=== PATIENT | female | born 1945 | race Caucasian/White ===

== ENCOUNTER → 2016-06-20 | Outpatient (CLI) | payer OTHER ==
[~2016-06-20] MED LIST: CHOL100010 PO; CLR10 PO; INDA1TAB3 PO; LISI-729 PO; MULT-506 PO; SIMV20TA2 PO
[2016-06-20 10:20] LABS: BASO % 0.5 %; BASO ABS # 0.02 K/uL (0-0.2); COMPLETE YES; EOS % 3.9 %; IG% 0.2 %; LYMPH % 28.4 %; LYMPH ABS # 1.16 K/uL (1.2-3.4); MEAN CELL VOLUME 90.1 fL (80-100); MEAN CORPUSCULAR HEMOGLOBIN 31.3 pg (25-34); MEAN CORPUSCULAR HGB CONC 34.8 g/dl (32-36); MEAN PLATELET VOLUME 12.1 fL (7.4-10.4); MONO % 9.5 %; NEUT % 57.5 %; PLATELET COUNT 194 K/uL (130-400); RED BLOOD COUNT 4.66 M/uL (4.2-5.4); WHITE BLOOD COUNT 4.09 K/uL (4.8-10.8)
[2016-06-20 10:36] LABS: ESTIMATED AVERAGE GLUCOSE 103 mg/dl; HA1C FLAG Normal (Normal)
[2016-06-20 10:44] LABS: ALT/SGPT 34 U/L (12-78); AST/SGOT 20 U/L (15-37); BLOOD UREA NITROGEN 20 mg/dl (7-18); BUN/CREATININE RATIO 21.2 (10-20); CALCIUM 9.6 mg/dl (8.5-10.1); CARBON DIOXIDE 26 mmol/L (21-32); CHLORIDE 103 mmol/L (98-107); CHOLESTEROL 127 mg/dl (0-200); CREATININE 0.94 mg/dl (0.60-1.20); GLUCOSE 90 mg/dl (70-99); POTASSIUM 3.6 mmol/L (3.5-5.1); SODIUM 138 mmol/L (136-145)
[2016-06-20 10:54] LABS: CHOLESTEROL/HDL RATIO 2.6; HDL CHOLESTEROL 49 mg/dl; LDL CHOLESTEROL CALCULATED 52 mg/dl; TRIGLYCERIDES 130 mg/dl (0-150); VERY LOW DENSITY LIPOPROT CALC 26 mg/dl
--- NOTE | 2016-06-26 10:52 | CODING QUERY MEDICAL NECESSITY ---
SUPPORTING DIAGNOSIS NEEDED A supporting diagnosis is required for the test/procedure performed on this patient in order for us to be reimbursed by the patient's insurance. Please provide a supporting diagnosis for the following test/procedure listed below next to the test name along with your signature. *If there is no additional diagnosis for this patient that would support the following test/procedure please document that below next to the test/procedure. Test(s)/Procedure(s) that require a supporting diagnosis: * GLYCATED HEMOGLOBIN DIAGNOSIS: * DOS: 06/20/16 Provider Signature: Date: Thank you Mary Ortiz Health Information Management Once completed, please kindly fax back to [phone] For questions please call [phone]
== END | disposition home or self-care (01) ==
LOC: C.LAB1850 09:17
PROVIDERS: ATTEND Internal Medicine
DX: E78.00 Pure hypercholesterolemia, unspecified (principal); E74.39 Other disorders of intestinal carbohydrate absorption

== ENCOUNTER → 2016-12-28 | Outpatient (CLI) | payer OTHER ==
--- NOTE | 2016-12-29 14:30 | MAMMOGRAPHY REPORT ---
BILATERAL DIGITAL SCREENING MAMMOGRAM TOMOSYNTHESIS WITH CAD: 12/28/2016 CLINICAL HISTORY: Asymptomatic. Personal history of breast cancer. TECHNIQUE: Breast tomosynthesis in addition to standard 2D mammography was performed. Current study was also evaluated with a Computer Aided Detection (CAD) system. COMPARISON: Comparison is made to exams dated: 12/28/2015 mammogram, 12/23/2014 mammogram, 12/19/2013 ma mmogram, 12/18/2012 mammogram, 12/18/2011 mammogram, and 12/12/2010 mammogram - [facility] BREAST COMPOSITION: There are scattered areas of fibroglandular density in both breasts. FINDINGS: There is a round circumscribed 6 mm mass seen within the right lateral posterior breast on the cc view, thought to project superiorly on the MLO view. While this could represent an intramamm candido lymph node, it was not clearly evident on prior exams, therefore, recommend additional imaging ev aluation with spot compression tomosynthesis views and possible breast ultrasound for further evaluat ion. The remainder of both breasts are stable compared to prior exams, without suspicious masses, calcific ations, or areas of architectural distortion noted. Again noted are postsurgical changes in the right upper outer quadrant from prior lumpectomy. A biopsy marker clip is again noted in the right breast . Bilateral benign-appearing calcifications are not significantly changed. Benign-appearing left br east masses/asymmetries are stable. IMPRESSION: ACR BI-RADS CATEGORY 0: INCOMPLETE EVALUATION: NEED ADDITIONAL IMAGING EVALUATION Right breast mass, for which additional imaging evaluation is recommended. The patient will be cavanaugh d to schedule an appointment. Approximately 10% of breast cancers are not detected with mammography. A negative mammographic report should not delay biopsy if a clinically suggestive mass is present. Maria G Orantes M.D. /:12/28/2016 16:53:54 Tank Charger: Cipriano RODRIGUEZ(Patti)(M), [facility] letter sent: Addl Imaging 0 BI-RADS Code: ACR BI-RADS Category 0: Incomplete Evaluation: Need Additional Imaging Evaluation
== END | disposition home or self-care (01) ==
LOC: C.MAMM 07:47
PROVIDERS: ATTEND Internal Medicine
DX: Z12.31 Encounter for screening mammogram for malignant neoplasm of breast (principal); N63 Unspecified lump in breast; Z85.3 Personal history of malignant neoplasm of breast; E78.00 Pure hypercholesterolemia, unspecified

== ENCOUNTER → 2016-12-28 | Outpatient (CLI) | payer OTHER ==
[2016-12-28 09:39] LABS: HEMATOCRIT 45.1 % (37-47); MEAN CELL VOLUME 91.5 fL (80-100); MEAN CORPUSCULAR HEMOGLOBIN 30.4 pg (25-34); MEAN CORPUSCULAR HGB CONC 33.3 g/dl (32-36); MEAN PLATELET VOLUME 11.3 fL (7.4-10.4); PLATELET COUNT 198 K/uL (130-400); RED BLOOD COUNT 4.93 M/uL (4.2-5.4); WHITE BLOOD COUNT 3.85 K/uL (4.8-10.8)
[2016-12-28 09:59] LABS: ALT/SGPT 39 U/L (12-78); BLOOD UREA NITROGEN 15 mg/dl (7-18); CALCIUM 9.9 mg/dl (8.5-10.1); CARBON DIOXIDE 26 mmol/L (21-32); CHLORIDE 107 mmol/L (98-107); CREATININE 0.84 mg/dl (0.60-1.20); GLUCOSE 101 mg/dl (70-99); POTASSIUM 3.7 mmol/L (3.5-5.1); SODIUM 140 mmol/L (136-145)
[2016-12-28 10:02] LABS: ALB/GLOB RATIO 0.9 (0.9-2); ALKALINE PHOSPHATASE 83 U/L (45-117); AST/SGOT 26 U/L (15-37)
[2016-12-28 10:12] LABS: BASO ABS # 0.03 K/uL (0-0.2); BASOPHIL % 0.9 %; COMPLETE YES; EOSINOPHIL % 4.5 %; LYMPH ABS # 0.79 K/uL (1.2-3.4); LYMPHOCYTE % 20.5 %; NEUTROPHILS % 66.1 %; VACUOLIZATION 1+
[2016-12-28 10:20] LABS: CHOLESTEROL/HDL RATIO 3.6
== END | disposition home or self-care (01) ==
LOC: C.LAB1850 08:18
PROVIDERS: ATTEND Internal Medicine
DX: Z85.3 Personal history of malignant neoplasm of breast (principal); E78.00 Pure hypercholesterolemia, unspecified

== ENCOUNTER → 2017-01-05 | Outpatient (CLI) | payer OTHER ==
[2017-01-05 15:10] LABS: URINE APPEARANCE CLEAR (CLEAR); URINE BILIRUBIN NEG (NEG); URINE COLOR YELLOW; URINE NITRITE NEG (NEG); URINE PH 6.5 (4.5-7.5); URINE SPECIFIC GRAVITY 1.011 (1.000-1.030); UROBILINOGEN NEG (NEG); ZZUR CULT IF INDIC CLEAN CATCH NO
[2017-01-05 15:13] LABS: MANUAL MICROSCOPIC REQUIRED? NO; REVIEW REQ? NO
== END | disposition home or self-care (01) ==
LOC: C.LAB1850 13:40
PROVIDERS: ATTEND Internal Medicine
DX: R10.9 Unspecified abdominal pain (principal)

== ENCOUNTER → 2017-01-10 | Outpatient (CLI) | payer OTHER ==
--- NOTE | 2017-01-10 14:15 | MAMMOGRAPHY REPORT ---
UNILATERAL RIGHT DIGITAL DIAGNOSTIC MAMMOGRAM TOMOSYNTHESIS AND TARGETED RIGHT ULTRASOUND: 01/10/2017 CLINICAL HISTORY: Callback from screening mammogram for right breast mass. TECHNIQUE: Breast tomosynthesis in addition to standard 2D mammography was performed. Spot compress ion right CC and MLO 2-D and tomosynthesis images and right CC and MLO tomosynthesis images including C views were obtained. COMPARISON: Comparison is made to exams dated: 12/28/2016 mammogram, 12/28/2015 mammogram, 12/23/2014 m ammogram, 12/19/2013 mammogram, 12/18/2012 mammogram, and 12/18/2011 mammogram - [facility]. BREAST COMPOSITION: There are scattered areas of fibroglandular density in the right breast. FINDINGS: spot compression views of the right breast demonstrate a persistent oval mass with partia lly circumscribed and partially obscured margins measuring approximately 5 mm in the right upper oute r quadrant far posteriorly. Targeted ultrasound was performed of the area of the mammographic mass. In the right breast at 8:30, 9 cm from the nipple, there is an oval circumscribed hypoechoic 5 x 5 x 2 mm mass. No clear fatty h ilum or central internal vascularity is seen to confirm a lymph node. A BB was placed on the skin at the site of the sonographic mass and repeat right CC and MLO views were obtained. The BB is located near the mammographic mass on both views, indicating probable correlation between the sonographic ma ss and the mammographic mass. Although the mass could represent an intramammary lymph node, it does not meet all of the criteria for a lymph node. Therefore, the mass is indeterminate and ultrasound g uided core needle biopsy is recommended for further evaluation. IMPRESSION: ACR BI-RADS CATEGORY 4: SUSPICIOUS, TARGETED ULTRASOUND ACR BI-RADS CATEGORY 4: SUSPICIO US Hypoechoic 5 mm mass in the right breast at 8:30, which is felt to correspond with the mammographic m ass. While this could represent an intramammary lymph node, it does not meet all of the imaging crit eria. Therefore, the mass is indeterminate and ultrasound guided core needle biopsy is recommended f or further evaluation. A phone call was made to the physician's office to confirm faxed results were received. The patient has been verbally notified of the results. She tentatively scheduled the biopsy before leaving the [facility]. Approximately 10% of breast cancers are not detected with mammography. A negative mammographic report should not delay biopsy if a clinically suggestive mass is present. Maria G Orantes M.D. ah/:01/10/2017 09:50:07 Health Communications Specialist: Sita ANTHONY)(Sasha), [facility] letter sent: Abnormal 4/5 BI-RADS Code: ACR BI-RADS Category 4: Suspicious Ultrasound BI-RADS: ACR BI-RADS Category 4: Suspici ous
== END | disposition home or self-care (01) ==
LOC: C.MAMM 08:50
PROVIDERS: ATTEND Internal Medicine
DX: N63 Unspecified lump in breast (principal)

== ENCOUNTER → 2017-01-17 | Outpatient (CLI) | payer OTHER ==
--- NOTE | 2017-01-17 09:23 | Discharge Instructions ---
Discharge Instructions Procedure Procedure Date: Jan 17, 2017. Reason for visit: Right Mass. Discharge Discharge Date: Jan 17, 2017. Discharge Diagnosis: status post breast biopsy Instructions Activity Recommendations: Additional Limitations (see below) Return to School/Work: no limitations Recommended Home Diet: No Limitations Provider Instructions: ACTIVITY RECOMMENDATIONS: * No lifting, pushing, pulling or exercising the affected side for three days. RETURN TO SCHOOL/WORK: * You may return to work/school after the procedure, but do not perform any strenuous activities for 24 to 48 hours. MEDICATIONS: * Tylenol (two 325 mg) every four to six hours if needed for mild pain (if not allergic to Tylenol). DIET: * Resume previous diet. SPECIAL CARE INSTRUCTIONS: * Keep biopsy site dry for 24 hours. May shower after 24 hours, but do not soak (bathe) incision. * May remove Tegaderm (plastic patch) tomorrow AFTER showering. * Leave the steri-strips on for one week. Allow the steri-strips to fall off by themselves. If not off after one week, you may remove them. You may place a Bandaid crosswise over the strips, if desired. * Apply ice 10 minutes on and 10 minutes off as needed. * Wear a bra at bedtime to sleep more comfortably for 2-3 days. * Your referring physician should have the results after approximately 5 to 7 business days. * Call for unusual bleeding, fever, drainage, etc or if you have any questions call during normal business hours or after hours call Dr Orantes, [phone]. FOLLOW UP VISIT: Follow-up with Referring Physician as scheduled. Allergies Coded Allergies: No Known Allergies (Unverified , 11/01/12) Michael Clark Recommendations: Call your doctor if: * Temperature above 101 degrees * Pain not relieved by pain medicine ordered * There is increased drainage or redness from any incision * You have any unanswered questions or concerns. Your Doctors Instructions noted above were prepared by provider Maria G Orantes. Patient Signature Section: Patient Instructions Signature Page Gabriela Wallace Patient (or Guardian) Signature/Date: I have read and understand the instructions given to me by my caregivers. Caregiver/RN/Doctor Signature/Date: The above-named patient and/or guardian has received patient instructions on this date. + Original Patient Signature Page (only) stays with chart. Please make copy for patient.
--- NOTE | 2017-01-17 13:48 | MAMMOGRAPHY REPORT ---
ULTRASOUND GUIDED BIOPSY RIGHT BREAST: 01/17/2017 CLINICAL HISTORY: Right 8:30 breast mass. PATIENT CONSENT: The procedure, risks and benefits were discussed with the patient and informed writt en consent was obtained. A timeout was performed immediately prior to the procedure. PROCEDURE DESCRIPTION: With ultrasound guidance, aseptic technique, and lidocaine as the local anesth etic (1% lidocaine to anesthetize the skin and 1% lidocaine with epinephrine to anesthetize the deepe r tissues), the mass of concern in the right 8:30 breast was sampled 3 times with a 14-gauge Achieve biopsy needle. Immediately thereafter, with ultrasound guidance, aseptic technique, and lidocaine a s the local anesthetic, a metallic localizer clip was placed centrally in the mass. Direct pressure was applied to the site immediately post procedure and hemostasis was achieved. Postprocedure unilat eral mammograms were performed to confirm placement of the clip in the expected location of the breas t mass; see separate dictation for details. The patient tolerated the procedure without complication . She was given wound care instructions. The specimens were sent to pathology for analysis. COMPARISON: Comparison is made to exams dated: 01/10/2017 ultrasound, 01/10/2017 mammogram, 12/28/2016 mammogram, 12/28/2015 mammogram, 12/23/2014 mammogram, and 12/19/2013 mammogram - [facility]. IMPRESSION: ULTRASOUND GUIDED BIOPSY Ultrasound guided core needle biopsy of the right 8:30 breast mass, with clip placement. The patient will receive pathology results from her referring provider. Maria G Orantes M.D. /:01/17/2017 09:25:26 Outboard Motorboat Rigger: Antionette Goodman, [facility]
--- NOTE | 2017-01-17 13:50 | MAMMOGRAPHY REPORT ---
UNILATERAL RIGHT DIGITAL DIAGNOSTIC MAMMOGRAM TOMOSYNTHESIS: 01/17/2017 CLINICAL HISTORY: Status post right breast biopsy. TECHNIQUE: Breast tomosynthesis in addition to standard 2D mammography was performed. Postprocedura l right CC and MLO views were obtained. COMPARISON: Comparison is made to exams dated: 01/10/2017 ultrasound, 01/10/2017 mammogram, 12/28/2016 mammogram, 12/28/2015 mammogram, 12/23/2014 mammogram, and 12/19/2013 mammogram - [facility]. BREAST COMPOSITION: There are scattered areas of fibroglandular density in the right breast. FINDINGS: A new biopsy marker clip is seen at the site of the biopsied mass in the right 8:30 breast posteriorly. The biopsy marker clip aligns with the previously seen mammographic mass, indicating g ood correlation between the biopsied sonographic mass and the mammographic masses. No significant po stbiopsy hematoma is seen. IMPRESSION: POST PROCEDURE IMAGING FOR MARKER PLACEMENT New biopsy marker clip status post ultrasound-guided biopsy of the right 8:30 breast mass. Pathology results are pending. Approximately 10% of breast cancers are not detected with mammography. A negative mammographic report should not delay biopsy if a clinically suggestive mass is present. Maria G Orantes M.D. /:01/17/2017 09:31:33 Docent Coordinator: Antionette Goodman [facility] BI-RADS Code: Post Procedure Imaging For Marker Placement
== END | disposition home or self-care (01) ==
LOC: C.MAMM 08:55
PROVIDERS: ATTEND Internal Medicine
DX: N63 Unspecified lump in breast (principal)

== ENCOUNTER → 2017-01-29 | Outpatient (CLI) | payer OTHER | END | disposition home or self-care (01) | LOC: C.MAMM 15:29 | PROVIDERS: ATTEND Internal Medicine Hematology & Oncology | DX: M85.89 Other specified disorders of bone density and structure, multiple sites (principal) ==

== ENCOUNTER → 2017-06-20 | Day surgery (SDC) | payer OTHER ==
[2017-06-14 10:05] VITALS: Ht 162.6 cm; Wt 78.2 kg
[~2017-06-20] VITALS: Ht 162.6 cm; Wt 78.2 kg
[~2017-06-20] MED LIST changes: -CHOL100010 PO; +EpHEDrine SULFATE 50MG/5ML SYR ONE; +LIDOCAINE HCL 2% 2 ML VIAL (20MG/ML) ONE; +MULT1LOZ PO; +PROPOFOL IV EMULSION 10 MG/ML 20 ML VIAL IV ONE; +SODIUM CHLORIDE 0.9% 500ML 500 ML IV ONE
--- NOTE | 2017-06-20 12:54 | Endo History and Physical ---
History & Physical Date of Service: Jun 20, 2017. Chief Complaint: Hx of colon CA Referring Physician: Dr Hunter History of Present Illness 72 yo CF who presents for colonoscopy secondary to history of colon cancer. Past Surgical History Hx Cardiac Surgery: No Hx Internal Defibrillator: No Hx Pacemaker: No Hx Abdominal Surgery: No Hx of Implantable Prosthesis: No Hx Post-Op Nausea and Vomiting: No Hx Cancer Surgery: Yes (RT BREAST LUMPECTOMY) Hx Thoracic Surgery: No Hx Orthopedic: No Hx Urinary Tract Surgery: No Family History None Social History Smoking Status: Never Smoker Hx Substance Use: No Hx Alcohol Use: No Allergies Coded Allergies: No Known Allergies (Verified , 06/20/17) Current Medications Reported Home Medications Medications Dose Route/Sig Max Daily Dose Days Date Category Airborne (Multiple Vitamins W/ Minerals) 1 Gracie Gracie 1 Tab PO DAILY 06/14/17 Reported Claritin (Loratadine) 10 Mg Tab 10 Mg PO DAILY 09/29/13 Reported Multivitamin (Multivitamins) Tab 1 Tab PO DAILY 09/29/13 Reported Lozol (Indapamide) 1.25 Mg Tab 1.25 Mg PO QAM 09/09/12 Reported Zocor (Simvastatin) 20 Mg Tab 20 Mg PO QPM 09/09/12 Reported Prinivil (Lisinopril) 5 Mg Tab 5 Mg PO QAM 09/09/12 Reported Vital Signs Weight (Kilograms): 78.18 Height (Feet): 5 Height (Inches): 4 Date Time Temp Pulse Resp B/P (MAP) Pulse Ox O2 Delivery O2 Flow Rate FiO2 06/20/17 12:29 36.5 80 20 115/93 (100) 95 Room Air Physical Exam General Appearance: WD/WN, no apparent distress Respiratory/Chest: Auscultation: breath sounds normal Cardiovascular: Heart Auscultation: RRR Abdomen: Bowel Sounds: normal Inspection & Palpation: soft, non-distended, no tenderness, guarding & rebound Assessment and Plan Assessment: 72 yo CF who presents for colonoscopy secondary to history of colon cancer. Plan: Proceed with colonoscopy.
--- NOTE | 2017-06-20 13:19 | Discharge Instructions ---
Endoscopy Patient Instructions Date / Procedure(s) Performed Jun 20, 2017. Colonoscopy Allergy Information Coded Allergies: No Known Allergies (Verified , 06/20/17) Discharge Date / Findings Jun 20, 2017. Diverticulosis Internal hemorrhoids Medication Instructions OK to resume all medications today as prescribed Reported Home Medications Medications Dose Route/Sig Max Daily Dose Days Date Category Airborne (Multiple Vitamins W/ Minerals) 1 Gracie Gracie 1 Tab PO DAILY 06/14/17 Reported Claritin (Loratadine) 10 Mg Tab 10 Mg PO DAILY 09/29/13 Reported Multivitamin (Multivitamins) Tab 1 Tab PO DAILY 09/29/13 Reported Lozol (Indapamide) 1.25 Mg Tab 1.25 Mg PO QAM 09/09/12 Reported Zocor (Simvastatin) 20 Mg Tab 20 Mg PO QPM 09/09/12 Reported Prinivil (Lisinopril) 5 Mg Tab 5 Mg PO QAM 09/09/12 Reported Provider Instructions Activity Restrictions - No exercising or heavy lifting for 24 hours. - Do not drink alcohol the day of the procedure. - Do not drive a car or operate machinery until the day after the procedure. - Do not make any important decisions or sign important papers in 24 hours after the procedure. Following Day: - Return to full activity which may include returning to work/school. Diet Start your diet with liquids and light foods (jello, soup, juice, toast). Then eat your usual diet if not nauseated. Treatment For Common After Affects For mild abdominal pain, bloating, or excessive gas: - Rest - Eat lightly - Lie on right side Follow-Up Information Follow-up with Dr Hunter as scheduled Anesthesia Information What You Should Know You have had a procedure that required some medicine to reduce anxiety and discomfort. This treatment is called moderate sedation. After receiving the treatment, you may be sleepy, but you will be able to breathe on your own. The effects of the treatment may last for several hours. Follow these instructions along with Activity/Diet recommendations noted above: * Do NOT do anything where dizziness or clumsiness would be dangerous. * Rest quietly at home today, then you can be up and about tomorrow. * Have a responsible person stay with you the rest of today. * You may have had an I.V. today. If so, you may take the dressing off later today. Recommendations Call your doctor if: * Trouble breathing * Continuous vomiting for more than 24 hours * Temperature above 101 degrees * Severe abdominal pain or bloating * Pain not relieved by pain medicine ordered * There is increased drainage or redness from any incision * A large amount of rectal bleeding greater than 2-3 tablespoons. (If you had a polyp/s removed or have hemorrhoids, a small amount of blood - from the rectum is to be expected.) * You have any unanswered questions or concerns. IN THE EVENT OF A SERIOUS EMERGENCY, GO TO THE NEAREST EMERGENCY ROOM Your discharge instructions were prepared by provider Yandel Loja. Patient Instructions Signature Page Gabriela Walalce Patient (or Guardian) Signature/Date: I have read and understand the instructions given to me by my caregivers. Caregiver/RN/Doctor Signature/Date: The above-named patient and/or guardian has received patient instructions on this date. + Original Patient Signature Page (only) stays with chart. Please make copy for patient.
--- NOTE | 2017-06-20 13:22 | GI REPORT ---
Procedure Date: 06/20/2017 12:26 PM Procedure: Colonoscopy Indications: High risk colon cancer surveillance: Personal history of colonic polyps Medicines: Monitored Anesthesia Care Complications: No immediate complications. Estimated Blood Loss: Estimated blood loss: none. Procedure: Pre-Anesthesia Assessment: - Prior to the procedure, a History and Physical was performed, and patient medications and allergies were reviewed. The patient's tolerance of previous anesthesia was also reviewed. The risks and benefits of the procedure and the sedation options and risks were discussed with the patient. All questions were answered, and informed consent was obtained. Prior Anticoagulants: The patient has taken no previous anticoagulant or antiplatelet agents. ASA Grade Assessment: II - A patient with mild systemic disease. After reviewing the risks and benefits, the patient was deemed in satisfactory condition to undergo the procedure. After I obtained informed consent, the scope was passed under direct vision. Throughout the procedure, the patient's blood pressure, pulse, and oxygen saturations were monitored continuously. The Scope was introduced through the anus and advanced to the terminal ileum. The colonoscopy was performed without difficulty. The patient tolerated the procedure well. The quality of the bowel preparation was good. The terminal ileum, ileocecal valve, appendiceal orifice, and rectum were photographed. Findings: The perianal and digital rectal examinations were normal. Multiple small-mouthed diverticula were found in the sigmoid colon. Non-bleeding internal hemorrhoids were found during retroflexion. The hemorrhoids were small. Impression: - Diverticulosis in the sigmoid colon. - Non-bleeding internal hemorrhoids. - No specimens collected. Recommendation: - Resume previous diet. - Continue present medications. - No repeat colonoscopy due to age and the absence of advanced adenomas. - Return to primary care physician as previously scheduled. Yandel Loja, DO 06/20/2017 1:21:58 PM This report has been signed electronically. Note Initiated On: 06/20/2017 12:26 PM I attest to the content of the Intraoperative Record and orders documented therein, exceptions below
--- NOTE | 2017-06-20 13:41 | Anesthesiology Progress Note ---
Anesthesia Post Op Note Date & Time Jun 20, 2017 at 13:41 Vital Signs Pain Intensity: 0 Vital Signs Past 12 Hours Date Time Temp Pulse Resp B/P (MAP) Pulse Ox O2 Delivery O2 Flow Rate FiO2 06/20/17 13:23 80 16 109/72 (84) 95 Room Air 06/20/17 12:29 36.5 80 20 115/93 (100) 95 Room Air Notes Mental Status: alert / awake / arousable, participated in evaluation Pt Amnestic to Procedure: Yes Nausea / Vomiting: adequately controlled Pain: adequately controlled Airway Patency, RR, SpO2: stable & adequate BP & HR: stable & adequate Hydration State: stable & adequate Anesthetic Complications: no major complications apparent
[2017-06-20 13:53] VITALS: BP 96/67; PULSE 80; O2SAT 98
== END | disposition home or self-care (01) ==
LOC: C.GI 11:51
PROVIDERS: ATTEND Internal Medicine
DX: Z12.11 Encounter for screening for malignant neoplasm of colon (principal); K57.30 Diverticulosis of large intestine without perforation or abscess without bleeding; K64.8 Other hemorrhoids; Z86.010 Personal history of colon polyps; I10 Essential (primary) hypertension; E78.5 Hyperlipidemia, unspecified; M19.90 Unspecified osteoarthritis, unspecified site; Z85.3 Personal history of malignant neoplasm of breast

== ENCOUNTER → 2017-07-06 | Outpatient (CLI) | payer OTHER ==
[~2017-07-06] MED LIST changes: -EpHEDrine SULFATE 50MG/5ML SYR ONE; -LIDOCAINE HCL 2% 2 ML VIAL (20MG/ML) ONE; -PROPOFOL IV EMULSION 10 MG/ML 20 ML VIAL IV ONE; -SODIUM CHLORIDE 0.9% 500ML 500 ML IV ONE
[2017-07-06 10:05] LABS: BASO % 0.3 %; BASO ABS # 0.01 K/uL (0-0.2); EOS % 3.6 %; EOS ABS # 0.14 K/uL (0-0.5); HEMATOCRIT 40.9 % (37-47); HEMOGLOBIN 14.4 g/dL (12.0-16.0); LYMPH % 25.5 %; LYMPH ABS # 0.99 K/uL (1.2-3.4); MEAN CELL VOLUME 89.5 fL (80-100); MEAN CORPUSCULAR HEMOGLOBIN 31.5 pg (25-34); MEAN CORPUSCULAR HGB CONC 35.2 g/dl (32-36); MONO % 9.3 %; MONO ABS # 0.36 K/uL (0.11-0.59); NEUT % 61.3 %; NEUT ABS # 2.38 K/uL (1.4-6.5); PLATELET COUNT 206 K/uL (130-400); RED CELL DISTRIBUTION WIDTH CV 12.8 % (11.5-14.5); RED CELL DISTRIBUTION WIDTH SD 41.4 fL (36.4-46.3); WHITE BLOOD COUNT 3.88 K/uL (4.8-10.8)
[2017-07-06 10:28] LABS: HEMOGLOBIN A1C 5.3 % (4.5-5.6)
[2017-07-06 10:34] LABS: ALT/SGPT 37 U/L (12-78); AST/SGOT 25 U/L (15-37); BLOOD UREA NITROGEN 19 mg/dl (7-18); CALCIUM 9.7 mg/dl (8.5-10.1); CARBON DIOXIDE 27 mmol/L (21-32); CREATININE 0.89 mg/dl (0.60-1.20); GLUCOSE 91 mg/dl (70-99); POTASSIUM 4.2 mmol/L (3.5-5.1); SODIUM 135 mmol/L (136-145)
[2017-07-06 10:45] LABS: CHOLESTEROL 168 mg/dl (0-200); LDL CHOLESTEROL CALCULATED 98 mg/dl
== END | disposition home or self-care (01) ==
LOC: C.LAB1850 08:57
PROVIDERS: ATTEND Internal Medicine
DX: Z00.00 Encounter for general adult medical examination without abnormal findings (principal); E78.00 Pure hypercholesterolemia, unspecified; I10 Essential (primary) hypertension

== ENCOUNTER → 2018-01-01 | Outpatient (CLI) | payer OTHER ==
--- NOTE | 2018-01-02 13:38 | MAMMOGRAPHY REPORT ---
BILATERAL DIGITAL SCREENING MAMMOGRAM TOMOSYNTHESIS WITH CAD: 01/01/2018 CLINICAL HISTORY: Asymptomatic. Personal history of breast cancer. TECHNIQUE: The study was acquired using full field digital technology and interpreted from soft copy. Breast tomosynthesis in addition to standard 2D mammography was performed. Current study was also ev aluated with a Computer Aided Detection (CAD) system. COMPARISON: Comparison is made to exams dated: 01/17/2017 mammogram, 01/10/2017 mammogram, 12/28/2016 ma mmogram, 12/28/2015 mammogram, 12/23/2014 mammogram, and 12/19/2013 mammogram - [facility] ter. BREAST COMPOSITION: There are scattered areas of fibroglandular density in both breasts. FINDINGS: There is skin irregularity and expected architectural distortion in the upper outer right b reast, at the site of prior lumpectomy. There is a stable lobulated mass in the slightly medial post erior left breast. Scattered benign coarse calcifications. Mild vascular calcification in the breas ts. There are 2 stable metallic biopsy marker clips in the right breast. No new suspicious mass, arc hitectural distortion or cluster of microcalcifications is seen. IMPRESSION: ACR BI-RADS CATEGORY 1: NEGATIVE There is no mammographic evidence of malignancy. A 1 year screening mammogram is recommended.( [id number]) The patient will receive written notification of the results. Some breast cancers are not detected with mammography. A negative mammographic report should not joe y biopsy if a clinically suggestive mass is present. Loretta Kruger M.D. ay/:01/01/2018 19:43:34 Bow Repairer Custom: RT So(Patti)(M)(BD), [facility] letter sent: Normal 1/2 BI-RADS Code: ACR BI-RADS Category 1: Negative
== END | disposition home or self-care (01) ==
LOC: C.MAMM 08:13
PROVIDERS: ATTEND Internal Medicine
DX: Z12.31 Encounter for screening mammogram for malignant neoplasm of breast (principal)

== ENCOUNTER 2020-03-15 14:58 | Observation (INO) ==
--- NOTE | 2020-03-11 09:57 | Anesthesiology Consultation ---
Date of Service March 11, 2020 Assessment & Plan (1) Encounter for pre-operative examination: COVID Status: As of 02/24 nurse assessment, patient denies travel to endemic area, known exposure/sick contacts, or symptoms of COVID19. Preoperative COVID19 testing completed on 03/10, results pending. Chart Review Chart Review: Acceptable Risk for Surgery and Patient NOT seen in Pre Admission Testing History Surgery Operation Date: 03/15/20 07:00 Proposed Procedures p Right Breast Mastectomy with Right [place] Lymph Node Biopsy, Kenisha Hospice Educator Right Lymph Node Placement - Jesus William MD, FACS Height/Weight Height: 5 ft 5 in Weight: 79.379 kg Allergies Allergy/AdvReac Type Severity Reaction Status Date / Time No Known Allergies Allergy Verified 02/25/20 11:17 Medications Home Medications Medication Instructions Recorded Confirmed Last Taken vitamins A,C,K-twzf-igkhoa 7,160 2 tab PO BID #120 tab 01/21/19 02/25/20 Unknown unit-113 mg-100 unit tablet fluocinonide 0.05 % topical 1 appln TOP DAILY PRN gm 03/27/19 02/25/20 Unknown ointment fluocinonide 0.05 % topical 1 appln TOP BID PRN ml 03/27/19 02/25/20 Unknown solution indapamide 1.25 mg tablet 1.25 mg PO QAM #90 tab 09/08/19 02/25/20 Unknown simvastatin 20 mg tablet 20 mg PO QPM #90 tab 09/08/19 02/25/20 Unknown cholecalciferol (vitamin D3) 1,000 units PO QAM 02/25/20 02/25/20 Unknown lisinopril 5 mg PO QAM 02/25/20 02/25/20 Unknown loratadine 10 mg PO QAM 02/25/20 02/25/20 Unknown multivitamin [Multiple Vitamins] 1 tab PO QAM 02/25/20 02/25/20 Unknown Past Medical History Medical History (Updated 03/11/20 @ 09:54 by Miky Griffith) Benign colonic polyp Breast cancer HX RADIATION 20 YRS AGO Diverticulosis GERD (gastroesophageal reflux disease) Glaucoma Hypercholesterolemia Hypertension Incomplete uterovaginal prolapse Internal hemorrhoids Osteopenia Past Family History Family History Mother Cancer Father Hypertension Past Surgical History Surgical History (Updated 02/25/20 @ 11:25 by Rosalba Huizar RN) H/O colonoscopy (2019) History of cataract surgery BILAT S/P lumpectomy, right breast (06/19/03) Rt Breast Lumpectomy W-Needle Loc,[place] 06/19/03 Dr. Baptiste Social History Smoking Status: Former smoker Do You Dip or Chew Tobacco: No Smoking End Date: 50 YRS AGO Hx Alcohol Use: No Hx Substance Use: No substance use type: does not use Testing Laboratory Results 03/10/20 WBC: 6.70 H/H: 15.4/44 PLATELETS: 230 SODIUM: 136 POTASSIUM: 3.5 CHLORIDE: 102 CO2: 27 BUN: 15 CREATININE: 1.02 GLUCOSE: 99 Electrocardiogram Date: 03/10/20 Findings: + NSR @ (74bpm) Nonspecific ST abnormality. No significant change from 2012 EKG.
--- NOTE | 2020-03-15 13:28 | Post Operative Brief Note ---
PG Immediate Post Op with CF Date of Surgery March 15, 2020 Pre & Post Diagnosis Operation Date: 03/15/20 11:55 Pre-Op Diagnosis: Breast Cancer Post-Op Diagnosis: Breast Cancer I identified the patient and participated in the time-out.: Yes Procedure Operation Date: 03/15/20 11:55 Actual Procedures p Right Breast Mastectomy with Right [place] Lymph Node Biopsy, Kenisha Risk Management Analyst Right Lymph Node Placement(Right) - Jesus William MD, FACS Surgeon Jesus William MD, FACS Medical Sales Consultant Silvestre Brock Estimated Blood Loss 20 Findings Consistent with Post-Op Diagnosis Specimens Specimen Description: A. Right [place] Lymph Nodes B. Right Breast; Long Silk Lateral C. Right Lateral Lymph Node with Marker; Methlyene Blue Deep Margin, Silk Kumar Lymph Node Drains Delta-Jc Drain
--- NOTE | 2020-03-15 13:44 | Operative Report (OR) ---
DATE OF OPERATION: 03/15/2020 NAME OF OPERATION: Right mastectomy with sentinel lymph node biopsy and additional lymph node excision. STAFF SURGEON: Jesus William MD. HHAS: Telma Brock PA-C. ANESTHESIA: General. DESCRIPTION OF PROCEDURE: The patient was brought in the operating room and placed on the operating table in supine position. Her right arm was extended on an arm board. Her right axilla and chest were prepped and draped in usual fashion. My diagnostic assistant helped with prepping, draping, excision of the lymph nodes, excision of the breast tissue and closure of the wounds. Initially, an incision was made in the right axilla using the Neoprobe to identify the sentinel lymph nodes, which were sent for permanent section. The site was closed using 2-0 plain for the deep tissue and 4-0 nylon for the skin. An elliptical incision was made around the nipple-areolar complex from medial to lateral, being careful to excise the prior scar and also noting a lateral lymph node using the [employer] Maintenance Mechanic probe. The breast tissue was dissected away from the subcutaneous tissue superiorly and inferiorly down to the pectoralis major muscle and then excising the breast tissue off the pectoralis major muscle. The left breast tissue was then marked with a long silk lateral. I was then able to use the [employer] Maintenance Mechanic probe to excise the suspicious lymph node, which had been biopsied preop, but was benign. This was sent with a silk suture marking the lymph node and methylene blue marking the deep/muscle margin. It was deep and lateral on the breast. At this point, the chest wall wound was closed after placing a 15 round Delta-Jc drain, securing it to the skin using 3-0 nylon suture. Subcutaneous tissue was reapproximated using 3-0 Vicryl suture, then the skin reapproximated using subcuticular 4-0 Monocryl with Steri-Strips. Dressing applied and the patient was transferred to recovery room in stable condition. I attest to the content of the Intraoperative Record and any orders documented therein. Any exception s are noted below.
--- NOTE | 2020-03-15 14:10 | Anesthesiology Progress Note ---
Date of Service March 15, 2020 Anesthesia Post Procedure Vital Signs Vital Signs: Temp Pulse Pulse Resp BP Pulse Ox 03/15/20 14:00 73 15 130/66 99 03/15/20 13:50 80 16 131/72 98 03/15/20 13:41 36.1 C L 87 13 135/85 98 03/15/20 09:17 36.6 C 79 18 145/83 H 98 Pain Intensity Right Breast: Pain Intensity: 2 Transfer of Care Handoff Completed per policy Notes Mental Status: alert / awake / arousable and participated in evaluation Patient Amnestic to Procedure: Yes Nausea / Vomiting: adequately controlled Pain: adequately controlled Airway Patency, RR, SpO2: stable & adequate BP & HR: stable & adequate Hydration State: stable & adequate Anesthetic Complications: no major complications apparent and Pt Satisfied with anesthetic care
--- NOTE | 2020-03-15 14:50 | Mammography Report ---
SPECIMEN: 03/15/2020 CLINICAL HISTORY: 75-year-old woman with recurrent right breast carcinoma presents at time of mastect katya. A previously biopsied lymph node in the far lateral posterior aspect of the right breast was pre operatively localized with Kenisha Application Support to ensure inclusion in the tissue specimen. COMPARISON: Comparison is made to exams dated: 03/01/2020 localization, 03/01/2020 mammogram, 020 ultrasound biopsy, 01/28/2020 ultrasound biopsy, 01/27/2020 mammogram, and 01/13/2020 mammogram - [facility]. FINDINGS: A specimen radiograph was obtained in the area of previously biopsied benign lymph node in the far lateral aspect of the right breast. The imaged specimen includes the wing-shaped biopsy flori er and Kenisha Application Support reflector, compatible with successful preoperative wireless localization and subseq uent surgical excision. Final surgical pathology is pending. IMPRESSION: SPECIMEN Right lateral breast biopsy specimen, as above. Loretta Krguer M.D. ay/:03/15/2020 13:22:47 Towel Cabinet Repairer: OR Technologist, [facility]
[~2020-03-15 14:58] MED LIST changes: +ACETAMINOPHEN 1,000 MG/100 ML VIAL IV ONE; +ATROPINE SULFATE 0.1 MG/ML 10ML SYR IV PRN; +BUPIVACAINE 0.5 % 5 MG/1 ML MPF 30ML VIAL ONE; -CLR10 PO; -INDA1TAB3 PO; +ISOSULFAN BLUE 10 MG/ML VIAL 5 ML ONE; -LISI-729 PO; +LR 15ML/HR IV SCH; -MULT-506 PO; -MULT1LOZ PO; +ONDANSETRON INJ 2 MG/ML 2 ML VIAL IV PRN; -SIMV20TA2 PO; +ceFAZolin 2000MG 2,000 MG/15 ML SYR IV SCH; +ePHEDrine sulfate 50 MG/ML AMP IV PRN; +fentaNYL citrate 100 MCG/2 ML VIAL IV PRN
[2020-03-15] MEDS ORDERED: HYDROCODONE/ACETAMOPHEN 5/325MG TAB PO PRN ×2 (15:01)
[2020-03-15] MEDS ORDERED: ACETAMINOPHEN 325 MG TAB PO PRN (15:01)
[2020-03-15] MEDS ORDERED: PROMETHAZINE HCL 12.5 MG in SODIUM CHLORIDE 0.9% 50 ML IV PRN (15:01)
[2020-03-15] MEDS ORDERED: SODIUM CHLORIDE 0.9% 1000ML 1,000 ML IV SCH (15:01)
[2020-03-15] MEDS ORDERED: ONDANSETRON INJ 2 MG/ML 2 ML VIAL IV PRN (15:01)
[2020-03-15] MEDS ORDERED: MoRPHine SULFATE 2 MG/ML CARP IV PRN ×2 (15:01)
[2020-03-15] MEDS ORDERED: hydrALAZINE HCL 20 MG/ML VIAL IV PRN (18:28)
--- NOTE | 2020-03-15 18:28 | Hospitalist Consultation ---
Date of Consultation March 15, 2020 Assessment & Plan (1) Breast cancer: Patient with recurrence of her breast cancer status post right mastectomy and sentinel node biopsy. She was initially treated for demonstrating ductal carcinoma T1c. N0 M0 ER positive H ER2/MARLI negative breast cancer with radiation therapy and 5 years of Femara. She had interval abnormal mammogram biopsied in 2017 which was negative (2) Hypertension: We continue the indapamide and lisinopril as needed hydralazine for backup blood pressure control History of Present Illness Attending Physician: Jesus William MD, FACS History of Present Illness Patient is status post right breast mastectomy with right sentinel lymph node biopsy by Dr. William 03/15/2020. This is a revision of her previous breast cancer surgery from Dr. Pereira Patient postoperatively seen with her she has no complaints or problems she did not take any of her antihypertensive medications this morning. She does have a drain in place which is a FELICIA with some sanguinous drainage Allergies Allergy/AdvReac Type Severity Reaction Status Date / Time No Known Allergies Allergy Verified 02/25/20 11:17 Home Medications Home Medications Medication Instructions Recorded Confirmed Type vitamins A,C,V-mhma-ivktuz 7,160 2 tab PO BID #120 tab 01/21/19 03/15/20 Rx unit-113 mg-100 unit tablet fluocinonide 0.05 % topical 1 appln TOP DAILY PRN gm 03/27/19 03/15/20 History ointment fluocinonide 0.05 % topical 1 appln TOP BID PRN ml 03/27/19 03/15/20 History solution indapamide 1.25 mg tablet 1.25 mg PO QAM #90 tab 09/08/19 03/15/20 Rx simvastatin 20 mg tablet 20 mg PO QPM #90 tab 09/08/19 03/15/20 Rx cholecalciferol (vitamin D3) 1,000 units PO QAM 02/25/20 03/15/20 History lisinopril 5 mg PO QAM 02/25/20 03/15/20 History loratadine 10 mg PO QAM 02/25/20 03/15/20 History multivitamin [Multiple Vitamins] 1 tab PO QAM 02/25/20 03/15/20 History Patient History Medical History (Updated 03/11/20 @ 09:54 by Miky Griffith) Benign colonic polyp Breast cancer HX RADIATION 20 YRS AGO Diverticulosis GERD (gastroesophageal reflux disease) Glaucoma Hypercholesterolemia Hypertension Incomplete uterovaginal prolapse Internal hemorrhoids Osteopenia Surgical History (Updated 03/15/20 @ 13:46 by Geetha Bello RN) H/O colonoscopy (2019) H/O right mastectomy (03/15/20) Right mastectomy with sentinel lymph node biopsy and additional lymph node excision. Dr. William 03/15/2020 History of cataract surgery BILAT S/P lumpectomy, right breast (06/19/03) Rt Breast Lumpectomy W-Needle Loc,[place] 06/19/03 Dr. Baptiste Family History Mother Cancer Father Hypertension Social History (Updated 02/11/20 @ 09:54 by Claritza Gomez RN) Smoking Status: Former smoker Smoking End Date: 50 YRS AGO; Second Hand Exposure: Yes ( KID); Do You Dip or Chew Tobacco: No; Tobacco Cessation Education Requested by Patient: No Hx Alcohol Use: No Hx Substance Use: No Preferred Language: Kyrgyz Communication Ability: Effective Admissions Officer Required: No Beliefs That Will Affect Care: None marital status: Current Living Situation: Spouse current occupational status: retired How many Children do You have: 3 Other Information That Helps Us Care for You: No Feels Safe at Home: Yes Safety Concerns: Feels Safe At This Time Assistive Devices: Glasses Review of Systems Review of Systems: Mild distress and fatigue no headache, blurry or double vision no speech or swallowing issues Some right chest postsurgical pain no shortness of breath, cough or wheezes no abdominal pain, nausea or vomiting, diarrhea or constipation no dysuria, hematuria or frequency no focal joint pain or swelling no back pain, CVA tenderness or radicular pain wound dressing is in place on her right chest no focal signs of weakness or numbness or altered sensation no complaints of anxiety or depression. Physical Exam Physical Exam: The patient appeared well nourished and normally developed. Vital signs as documented. Head exam is normocephalic atraumatic no scleral icterus Neck is without JVD, thyromegaly, or carotid bruits. Lungs are clear to auscultation, no focal loss of breath sounds Cardiac exam, Rhythm is regular.. No murmurs, rubs or gallops. Right chest is slightly uncomfortable to examination there is a FELICIA drain coming out of her right axilla Abdominal exam reveals normal bowel sounds, soft non tender, no masses Extremities are nonedematous and both pedal pulses are present Neurologic exam is alert and oriented, no focal loss of strength or sensation Psychologically is without concerns for anxiety or depression. Results & Data Results & Data ([facility]) Vital Signs (Past 12 Hours) Vital Signs Temp Pulse Pulse Resp BP Pulse Ox 03/15/20 17:54 98.1 F 78 16 118/74 96 03/15/20 16:56 97.7 F 75 16 130/78 97 03/15/20 15:50 97.3 F L 76 16 129/80 96 03/15/20 15:23 97.7 F 71 16 120/70 100 03/15/20 15:20 98.1 F 76 16 129/62 95 03/15/20 14:40 69 14 125/61 97 03/15/20 14:30 97.5 F L 70 14 129/79 96 03/15/20 14:20 68 19 126/68 98 03/15/20 14:10 77 17 124/79 97 03/15/20 14:00 73 15 130/66 99 03/15/20 13:50 80 16 131/72 98 03/15/20 13:41 97.0 F L 87 13 135/85 98 03/15/20 09:17 97.9 F 79 18 145/83 H 98 PG Care Time/CCT Total # of Minutes Spent Total Time Spent with Patient: Total time spent is greater than 50% in coordination of care (as documented) at patient's floor/unit and/or counseling patient: Coding Level of Care Code 73649 Inpt Consult Level 2 Diagnoses Breast cancer C50.919 Hypertension I10
[2020-03-15] MEDS: ceFAZolin 1000MG 1,000 MG/7.5 ML SYR IV SCH (19:34)
[2020-03-15] MEDS ORDERED: SIMVASTATIN 20 MG TAB PO SCH (21:00)
[2020-03-16] MEDS: ceFAZolin 1000MG 1,000 MG/7.5 ML SYR IV SCH (04:42)
[2020-03-16] MEDS ORDERED: HEPARIN SOD 5,000 UNIT/0.5 ML VIAL SQ SCH (09:00)
[2020-03-16] MEDS ORDERED: LORATADINE 10 MG TAB PO SCH (09:00)
[2020-03-16] MEDS ORDERED: INDAPAMIDE 1.25 MG TAB PO SCH (09:00)
[2020-03-16] MEDS ORDERED: lisinopril 5 MG TAB PO SCH (09:00)
--- NOTE | 2020-03-16 10:32 | Anesthesiology Progress Note ---
Date of Service March 16, 2020 Anesthesia Post Procedure Vital Signs Vital Signs: Temp Pulse Pulse Resp BP BP Pulse Ox 03/16/20 08:42 36.7 C 66 18 137/80 95 03/16/20 03:59 36.6 C 75 18 131/80 95 03/15/20 23:06 37.0 C 74 14 124/66 95 03/15/20 19:43 36.6 C 80 17 131/85 95 03/15/20 17:54 36.7 C 78 16 118/74 96 03/15/20 16:56 36.5 C 75 16 130/78 97 03/15/20 15:50 36.3 C L 76 16 129/80 96 03/15/20 15:23 36.5 C 71 16 120/70 100 03/15/20 15:20 36.7 C 76 16 129/62 95 03/15/20 14:40 69 14 125/61 97 03/15/20 14:30 36.4 C L 70 14 129/79 96 03/15/20 14:20 68 19 126/68 98 03/15/20 14:10 77 17 124/79 97 03/15/20 14:00 73 15 130/66 99 03/15/20 13:50 80 16 131/72 98 03/15/20 13:41 36.1 C L 87 13 135/85 98 Pain Intensity Right Breast: Pain Intensity: 0 Notes Mental Status: alert / awake / arousable and participated in evaluation Patient Amnestic to Procedure: Yes Nausea / Vomiting: adequately controlled Pain: adequately controlled Airway Patency, RR, SpO2: stable & adequate BP & HR: stable & adequate Hydration State: stable & adequate Anesthetic Complications: no major complications apparent and Pt Satisfied with anesthetic care
--- NOTE | 2020-03-17 04:08 | Discharge Summary (DS) ---
PRINCIPAL DIAGNOSIS: Right breast cancer. PROCEDURES: The patient underwent right mastectomy with sentinel lymph node biopsy and lymph node excision. HOSPITAL COURSE: The patient was brought into the hospital on 03/15/2020 where she underwent right mastectomy with sentinel lymph node biopsy and also excision of a prior biopsied lymph node. She has done very well overnight and is felt stable for discharge home today to be followed in the surgical clinic within 1 week.
== END 2020-03-16 12:12 | disposition home health service (06) ==
LOC: ASU 14:58 → 3N 14:58

== ENCOUNTER 2024-03-18 10:59 | Observation (INO) ==
--- NOTE | 2024-03-18 11:23 | Emergency Department Note ---
Impression & Plan Non-ST elevation NE (NSTEMI), Heart palpitations, LBBB (left bundle branch block) ED Provider Note HISTORY OF PRESENT ILLNESS: Patient is an 79-year-old female presenting with palpitations. Patient reports that last night around 2300, she was trying to go to bed and felt like her heart was pounding and racing. She reports that she took her blood pressure and it was elevated and her heart rate was in the 150s. Reports that she could not get her heart rate to slow down for a number of hours and had to sleep sitting up. She denies any recent use. Denies any recent medication changes. Denies any chest pain, shortness of breath or lightheadedness with the palpitations. She states that she has had this happen before, but it only lasts anywhere from 10- 30 minutes and she is normally able to get her heart rate back down. Denies any recent cough or fevers. States that the episode ended at around 2 AM and she has not had another episode this morning. However, she went to [facility] to get evaluated and an EKG was performed and appeared abnormal as compared to an EKG from 2019, and she was referred to the ER. Denies any DVT or PE history. Denies any complaints at this time. ROS: as above PHYSICAL EXAM: Constitutional: Patient appears in no acute distress. HENT: Head: Normocephalic and atraumatic. Eyes: EOMI, PERRL Mouth/Throat: Mucous membranes moist. Neck: Trachea midline. Neck supple. Cardiovascular: RRR, No murmurs, rubs or gallops. Intact distal pulses. Pulmonary/Chest: No respiratory distress. Breath sounds clear and equal bilaterally. No wheezes or rales. Abdominal: Abdomen soft, no tenderness, rebound or guarding. Musculoskeletal: No edema, tenderness or deformity noted. Skin: Warm and dry. No rash, erythema, pallor or cyanosis Psychiatric: Appropriate mood and affect for situation. Neurological: Alert and keenly responsive. CN II-XII grossly intact, moving all extremities equally and fully. MDM: - Vitals signs showed hypertension and tachycardia. - History obtained via patient. History as above. - Chronic conditions affecting care: breast cancer (s/p right mastectomy with sentinel lymph node biopsy); GERD; HLD - Differential diagnoses include, but are not limited to: hyperthyroidism; electrolyte abnormality; ACS; pneumonia; dysrhythmia - Order placed for continuous cardiac monitoring. At this time, monitor showed rate of 77 bpm with normal sinus rhythm, per my interpretation. - External medical records reviewed. EKG obtained at [facility] at 10:16 was interpreted by myself. Showed normal sinus rhythm with a left bundle branch block. Rate 77 bpm. QT 416. - EKG interpreted by myself showed normal sinus rhythm. Rate 76 bpm. QT 412. No acute ischemic changes. Noted to have left bundle branch block. This left bundle branch block does appear new as compared to the last EKG obtained on 03/10/2020. - Laboratory workup interpreted by myself showed normal WBC; normal PT/INR; stable electrolytes; elevated total bilirubin (1.5); normal lipase; elevated troponin (109); normal TSH - CXR negative for pneumonia, per my interpretation - Patient is chest pain free in ER. NSTEMI may be secondary to her reported hours of tachycardia. However, given the new EKG changes (which again may be old, as we only have an EKG from 2019 to compare to), discussed case with media reconciliation specialist, Dr. Celeste, at 12:41. He reports no urgent need for labor relations worker, but recommends admission, trending troponins and obtaining an echocardiogram. Reports if patient does develop chest pain, he may consider taking her for a catheterization. - Discussion was had with case assistant about patient's case and need for admission - Hospitalist, Dr. Babb, consulted for admission - [facility] ASSESSMENT AND PLAN: Diagnosis: palpitations; NSTEMI; LBBB Plan: admit Past Med/Surg History Problem List (Updated 03/18/24 @ 12:56 by Chana Benton MD) LBBB (left bundle branch block) (Acute) Heart palpitations (Acute) Non-ST elevation NE (NSTEMI) (Acute) Osteoporosis Allergy OA (osteoarthritis) GERD (gastroesophageal reflux disease) Health care maintenance H/O right mastectomy (03/15/20) Right mastectomy with sentinel lymph node biopsy and additional lymph node excision. Dr. William 03/15/2020 Benign colonic polyp (Chronic) Diverticulosis (Chronic) Glaucoma (Chronic) Hypercholesterolemia (Chronic) Incomplete uterovaginal prolapse (Chronic) Internal hemorrhoids (Chronic) Osteopenia (Chronic) Medical History Recurrent cancer of right breast Superficial thrombophlebitis of arm Tachycardia Encounter for pre-operative examination GERD (gastroesophageal reflux disease) Pre-op testing Encounter for screening for other viral diseases Breast cancer Surgical History History of cataract surgery H/O colonoscopy (2018) S/P lumpectomy, right breast (06/19/03) Family History Mother Cancer Ovarian cancer Father Hypertension Myocardial infarction Denies family history of Prostate cancer Breast cancer Colorectal cancer Social History Smoking Status: Never smoker Age Started Using Tobacco: 19; Age Quit Using Tobacco: 23; Second Hand Exposure: No; Do You Dip or Chew Tobacco: No; Hx Alcohol Use: No Hx Substance Use: No Preferred Language: Togolese Communication Ability: Effective Visual Impairment: No Limitations Hearing Ability: Normal Stab Setter And Driller Required: No Beliefs That Will Affect Care: None marital status: Current Living Situation: Spouse current occupational status: retired How many Children do You have: 3 Feels Safe at Home: Yes Childhood Exposure to Second-Hand Smoke: Yes Dental Care, Regularly: Yes Physical Activity Frequency: 3-4 Times per Week Seatbelt Use: always Sunscreen Use: Yes Assistive Devices: Glasses Allergies Allergies Allergy/AdvReac Type Severity Reaction Status Date / Time No Known Allergies Allergy Verified 03/18/24 10:01 Home Meds Home Medications Medication Instructions Recorded Confirmed loratadine 10 mg tablet 10 mg PO QAM 02/25/20 03/18/24 multivitamin (Multiple Vitamins 1 tab PO QAM 02/25/20 03/18/24 tablet) anastrozole 1 mg tablet 1 mg PO DAILY 11/11/20 03/18/24 [id number] 5 mg-zeaxanth 4 cap PO DAILY 03/10/22 03/18/24 1 mg-bilberry 7.5 mg-herbal capsule (Macular Health Formula) omeprazole 20 mg tablet,delayed 20 mg PO DAILY 09/12/22 03/18/24 release Probiotic (Unknown Strength) 1 cap PO DAILY 03/18/24 03/18/24 Tums 1,000 Mg 1 ea PO DAILY 03/18/24 03/18/24 dorzolamide 22.3 mg-timolol 6.8 1 drp OPB BID 03/18/24 03/18/24 mg/mL eye drops mometasone 0.1 % topical cream See Rx Instructions .Route .COMPLEX 03/18/24 03/18/24 Previous Rx's Medication Instructions Recorded albuterol sulfate 90 mcg/actuation 1 inh inhalation QID PRN shortness 03/10/22 aerosol inhaler of breath or wheezing #8.5 grams simvastatin 20 mg tablet 20 mg PO QPM #90 tabs 10/05/23 Results & Data (ED) Vital Signs Vital Signs - 24 hr 03/18/24 11:03 03/18/24 11:26 03/18/24 11:26 Temperature 36.3 C L Temperature Source Temporal Artery Scan Pulse Rate 93 H 84 Pulse Rate [Apical] Pulse Rhythm Regular Pulse Strength Normal Respiratory Rate 20 18 Respiratory Effort / Characteristics Non-Labored Spontaneous Respiratory Depth Normal Blood Pressure 165/98 H Blood Pressure [Left Arm] Blood Pressure Mean 120 Blood Pressure Mean [Left Arm] Blood Pressure Position Sitting Blood Pressure Position [Left Arm] Pulse Oximetry 96 97 97 Oxygen Delivery Method Room Air Room Air Room Air Oxygen Flow Rate 0 Sepsis Recent Fever Within 48 Hours No Sepsis New/Unexplained Change in Mental Status N/A Sepsis Action Taken by Nursing No Action Required 03/18/24 11:35 03/18/24 12:22 Temperature Temperature Source Pulse Rate 77 Pulse Rate [Apical] 72 Pulse Rhythm Pulse Strength Respiratory Rate 18 Respiratory Effort / Characteristics Non-Labored Spontaneous Respiratory Depth Normal Blood Pressure Blood Pressure [Left Arm] 147/79 H Blood Pressure Mean Blood Pressure Mean [Left Arm] 101 Blood Pressure Position Blood Pressure Position [Left Arm] Semi-fowlers Pulse Oximetry 97 Oxygen Delivery Method Room Air Oxygen Flow Rate Sepsis Recent Fever Within 48 Hours Sepsis New/Unexplained Change in Mental Status Sepsis Action Taken by Nursing Laboratory Data 03/18/24 11:37 03/18/24 11:37 Lab Results 03/18/24 Range/Units 11:37 WBC 6.76 (4.8-10.8) K/ul RBC 5.01 (4.20-5.40) M/uL Hgb 15.4 (12.0-16.0) g/dl Hct 44.8 (37.0-47.0) % MCV 89.4 (80.0-100.0) fL MCH 30.7 (25.0-34.0) pg MCHC 34.4 (32.0-36.0) g/dL RDW Std Deviation 41.6 (36.4-46.3) fL RDW Coeff of Lucien 12.8 (11.5-14.5) % Plt Count 225 (130-400) K/uL MPV 11.7 (9.4-12.4) fL Immature Gran % (Auto) 0.1 % Neut % (Auto) 61.1 % Lymph % (Auto) 24.0 % [place] % (Auto) 9.5 % Eos % (Auto) 4.7 % Baso % (Auto) 0.6 % Neut # (Auto) 4.13 (1.40-6.50) K/uL Lymph # (Auto) 1.62 (1.20-3.40) K/uL [place] # (Auto) 0.64 H (0.11-0.59) K/uL Eos # (Auto) 0.32 (0.00-0.50) K/uL Baso # (Auto) 0.04 (0.00-0.20) K/uL Immature Gran # (Auto) 0.01 (0.01-0.20) K/uL PT 11.3 (9.0-12.0) Seconds INR 1.0 (0.9-1.1) Sodium 141 (136-145) mmol/L Potassium 4.1 (3.5-5.1) mmol/L Chloride 109 H (98-107) mmol/L Carbon Dioxide 23 (21-32) mmol/L Anion Gap 9 (3-11) BUN 24 H (6-23) mg/dl Creatinine 0.78 (0.6-1.2) mg/dl Est Cr Clr Drug Dosing 59.7 ml/min eGFR 76.26 BUN/Creatinine Ratio 30.8 H (10-20) Glucose 105 H (70-99(Fasting)) mg/dl Calcium 9.8 (8.6-10.3) mg/dl Magnesium 1.8 (1.7-2.4) mg/dl Total Bilirubin 1.5 H (0.2-1.0) mg/dl AST 31 (13-39) U/L ALT 28 (7-52) U/L Alkaline Phosphatase 66 (34-104) U/L Troponin I High Sens 109.0 H* (0-14) pg/ml Total Protein 8.1 (6.0-8.3) gm/dl Albumin 4.4 (3.4-5.0) gm/dl Globulin 3.7 (2.5-4.0) gm/dl Albumin/Globulin Ratio 1.2 (0.9-2) Lipase 12 (11-82) U/L TSH 2.939 (0.300-4.500) uIu/ml Discharge Plan Visit Data Chief Complaint: Tachycardia Stated Complaint: ABN EKG, TACHYCARDIA/POUNDING ED Provider: Chana Benton Discharge Problem: Non-ST elevation NE (NSTEMI), Heart palpitations, LBBB (left bundle branch block) Forms Stand Alone Forms: [facility] Prescriptions Prescriptions: No Action simvastatin 20 mg tablet 20 mg PO QPM Qty: 90 3RF anastrozole 1 mg tablet 1 mg PO DAILY omeprazole 20 mg tablet,delayed release (DR/EC) 20 mg PO DAILY Macular Health Formula 5-1-7.5 mg capsule 4 cap PO DAILY albuterol sulfate 90 mcg/actuation HFA aerosol inhaler 1 inh inhalation QID PRN (Reason: shortness of breath or wheezing) Qty: 8.5 4RF loratadine 10 mg Tablet 10 mg PO QAM multivitamin [Multiple Vitamins] tablet 1 tab PO QAM dorzolamide-timolol 22.3-6.8 mg/mL drops 1 drp OPB BID Tums 1,000 Mg 1 ea PO DAILY mometasone 0.1 % cream See Rx Instructions .ROUTE .COMPLEX Rx Instructions: Apply to affected areas on trunk and extremities twice daily x 2 weeks as needed for flaring. Probiotic (Unknown Strength) 1 cap PO DAILY Referrals Referrals: Rebecca Cunha MD [Primary Care Provider] -
[2024-03-18 11:57] LABS: Basophils # (auto) 0.04 K/uL (0.00-0.20); Basophils % (auto) 0.6 %; Eosinophils # (auto) 0.32 K/uL (0.00-0.50); Eosinophils % (auto) 4.7 %; Hematocrit (blood only) 44.8 % (37.0-47.0); Hemoglobin 15.4 g/dl (12.0-16.0); Immature Granulocytes # (auto) 0.01 K/uL (0.01-0.20); Immature Granulocytes % (auto) 0.1 %; Lymphocytes # (auto) 1.62 K/uL (1.20-3.40); Mean Corpuscular Hemoglobin 30.7 pg (25.0-34.0); Mean Corpuscular Hgb Conc 34.4 g/dL (32.0-36.0); Mean Corpuscular Volume 89.4 fL (80.0-100.0); Mean Platelet Volume 11.7 fL (9.4-12.4); Monocytes # (auto) 0.64 K/uL (0.11-0.59); Monocytes % (auto) 9.5 %; Neutrophils # (auto) 4.13 K/uL (1.40-6.50); Neutrophils % (auto) 61.1 %; Platelet Count 225 K/uL (130-400); RDW Coefficient of Variation 12.8 % (11.5-14.5); RDW Standard Deviation 41.6 fL (36.4-46.3); Red Blood Count 5.01 M/uL (4.20-5.40); White Blood Count 6.76 K/ul (4.8-10.8)
[2024-03-18 12:07] LABS: Albumin Globulin Ratio 1.2 (0.9-2); Albumin Level 4.4 gm/dl (3.4-5.0); BUN Creatinine Ratio 30.8 (10-20); Bilirubin,Total 1.5 mg/dl (0.2-1.0); Calcium 9.8 mg/dl (8.6-10.3); Creatinine Clr Calc Pharmacy 59.7 ml/min; Globulin 3.7 gm/dl (2.5-4.0); Magnesium 1.8 mg/dl (1.7-2.4); Potassium 4.1 mmol/L (3.5-5.1); Total Protein 8.1 gm/dl (6.0-8.3)
[2024-03-18 12:15] LABS: Prothrombin Time 11.3 Seconds (9.0-12.0)
[2024-03-18 12:22] LABS: Thyroid Stimulating Hormone 2.939 uIu/ml (0.300-4.500)
--- NOTE | 2024-03-18 12:51 | XRay Report ---
XR chest 1V portable CLINICAL HISTORY: Tachycardia. COMPARISON STUDY: PET/CT March 24, 2020. FINDINGS: There is no pneumothorax or pleural effusion. There is no consolidation or evidence for pul monary edema. A moderate sized hiatal hernia is noted. There is stable elevation of the right hemidia phragm. IMPRESSION: 1. No acute cardiopulmonary findings. 2. Stable elevation of the right hemidiaphragm. 3. Moderate-sized hiatal hernia. ACT 112: Negative or not required by law. Electronically signed by: Ministerio Briceno M.D. 03/18/2024 12:50 PM
--- NOTE | 2024-03-18 13:39 | History & Physical Report ---
Date of Service March 18, 2024 Assessment & Plan (1) Heart palpitations: (2) LBBB (left bundle branch block): (3) Elevated troponin: (4) GERD (gastroesophageal reflux disease): (5) Osteoporosis: (6) Glaucoma: (7) Hypercholesterolemia: (8) Hypertension: Plan 79 year old female with h/o breast cancer s/p mastectomy, HLD, GERD, osteoporosis, and glaucoma presenting after a prolonged episode of palpitations. #Palpitations: 3 hour episode of palpitations/tachycardia with rates up to 150s at rest - history suspicious for tachyarrhythmia Hgb WNL, TSH WNL, no electrolyte abnormalities noted Monitor for recurrence on telemetry, consider event monitor as outpatient #Elevated Troponin/New LBBB: EKG with new LBBB but without ischemic changes Troponin 109 on admission, repeat 100.6 - low suspicion for ACS, more likely a result of demand ischemia in the setting of sustained tachycardia. TTE obtained to r/o ischemic insult, read pending. Chronic Problems: H/o breast cancer: continue home anastrozole HLD: continue home simvastatin Glaucoma: continue home dorzolamide-timolol GERD: continue home omeprazole Dispo: admit to med-tele FEN/GI: HH diet VTE ppx: Heparin Full Code History of Present Illness Primary Care Provider: Rebecca Cunha MD 79 year old female with h/o breast cancer s/p mastectomy, HLD, GERD, osteoporosis, and glaucoma presenting after a prolonged episode of palpitations. Sx started abruptly around 2300 last night while patient was in bed, felt her heart racing but did not have associated chest pain, SOB, or lightheadedness. Patient monitored her vitals during this episode, HR up to the 150s at rest. Patient was eventually able to fall asleep in her recliner, estimates that sx subsided spontaneously after about 3 hours. Patient has previously experienced similar sx on multiple occasions over the past 4 years, though never for this long, palpitations normally subside within minutes. Denies h/o known ar rhythmias, sx were never worked up. No further sx today. Patient was seen in [facility] care this morning, EKG notable for new LBBB when compared to EKG in 2019. Currently, patient resting comfortably, states that she feels at baseline - denies CP, SOB, lightheadedness/dizziness. ED Course: EKG with NSR, rate 76, intervals WNL, new LBBB, no ischemic changes. Troponin 109->100.6. Allergies Allergy/AdvReac Type Severity Reaction Status Date / Time No Known Allergies Allergy Verified 03/18/24 10:01 Home Medications Medication Instructions Recorded Confirmed Type loratadine 10 mg tablet 10 mg PO QAM 02/25/20 03/18/24 History multivitamin (Multiple Vitamins 1 tab PO QAM 02/25/20 03/18/24 History tablet) anastrozole 1 mg tablet 1 mg PO DAILY 11/11/20 03/18/24 History albuterol sulfate 90 mcg/actuation 1 inh inhalation QID PRN shortness 03/10/22 03/18/24 Rx aerosol inhaler of breath or wheezing #8.5 grams [id number]-vql-[id number] 5 mg-zeaxanth 4 cap PO DAILY 03/10/22 03/18/24 History 1 mg-bilberry 7.5 mg-herbal capsule (Macular Health Formula) omeprazole 20 mg tablet,delayed 20 mg PO DAILY 09/12/22 03/18/24 History release simvastatin 20 mg tablet 20 mg PO QPM #90 tabs 10/05/23 03/18/24 Rx Probiotic (Unknown Strength) 1 cap PO DAILY 03/18/24 03/18/24 History Tums 1,000 Mg 1 ea PO DAILY 03/18/24 03/18/24 History dorzolamide 22.3 mg-timolol 6.8 1 drp OPB BID 03/18/24 03/18/24 History mg/mL eye drops mometasone 0.1 % topical cream See Rx Instructions .Route .COMPLEX 03/18/24 03/18/24 History Past Med/Surg History Problem List (Updated 03/18/24 @ 13:40 by Aakash Gooden DO) Elevated troponin LBBB (left bundle branch block) (Acute) Heart palpitations (Acute) Non-ST elevation [place] (NSTEMI) (Acute) Osteoporosis Allergy OA (osteoarthritis) GERD (gastroesophageal reflux disease) Health care maintenance H/O right mastectomy (03/15/20) Right mastectomy with sentinel lymph node biopsy and additional lymph node excision. Dr. William 03/15/2020 Benign colonic polyp (Chronic) Diverticulosis (Chronic) Glaucoma (Chronic) Hypercholesterolemia (Chronic) Incomplete uterovaginal prolapse (Chronic) Internal hemorrhoids (Chronic) Osteopenia (Chronic) Medical History Recurrent cancer of right breast Superficial thrombophlebitis of arm Tachycardia Encounter for pre-operative examination GERD (gastroesophageal reflux disease) Pre-op testing Encounter for screening for other viral diseases Breast cancer Surgical History History of cataract surgery H/O colonoscopy (2019) S/P lumpectomy, right breast (06/19/03) Family History Mother Cancer Ovarian cancer Father Hypertension Myocardial infarction Denies family history of Prostate cancer Breast cancer Colorectal cancer Social History Smoking Status: Former smoker Age Started Using Tobacco: 19; Age Quit Using Tobacco: 23; Second Hand Exposure: No; Do You Dip or Chew Tobacco: No; Tobacco Cessation Education Requested by Patient: No Hx Alcohol Use: No Hx Substance Use: No Preferred Language: Mohawk Communication Ability: Effective Visual Impairment: No Limitations Hearing Ability: Normal Poultry Veterinarian Required: No Beliefs That Will Affect Care: None marital status: Current Living Situation: Spouse current occupational status: retired How many Children do You have: 3 Other Information That Helps Us Care for You: No Feels Safe at Home: Yes Safety Concerns: Feels Safe At This Time Childhood Exposure to Second-Hand Smoke: Yes Dental Care, Regularly: Yes Physical Activity Frequency: 3-4 Times per Week Seatbelt Use: always Sunscreen Use: Yes Assistive Devices: Glasses Review of Systems Review of Systems: as per HPI Physical Exam Physical Exam: General: Alert and oriented. No acute distress Cardiac: Regular rate and rhythm, no murmurs appreciated Respiratory: Lungs clear to auscultation bilaterally, No increased work of breathing Abdominal: Soft, non-tender, non-distended. Bowel sounds present. Extremities: No lower extremity edema, calves non-tender bilaterally Results & Data Results & Data Vital Signs (Past 12 Hours) Vital Signs Temp Pulse Pulse Resp BP BP Pulse Ox 03/18/24 13:02 73 13 161/91 H 96 03/18/24 12:22 77 03/18/24 11:35 72 18 147/79 H 97 03/18/24 11:26 84 18 97 03/18/24 11:26 97 03/18/24 11:03 36.3 C L 93 H 20 165/98 H 96 O2 Del Method O2 Flow Rate 03/18/24 13:02 Room Air 03/18/24 12:22 03/18/24 11:35 Room Air 03/18/24 11:26 Room Air 03/18/24 11:26 Room Air 0 03/18/24 11:03 Room Air Supervising Physician Co-Signing Physician Notes I personally saw and examined the patient. I independently reviewed the labs, EKG, imaging, problem list, medication list, past medical history and family history. I verified all nino points and agree with resident physician Dr Aakash Gooden DO with the following exceptions and/or additions: 79 year old presents to the ER with episode of palpitations. Elevated troponin and new LBB on EKG. No chest pain or shortness of breath O/E HS RRR, no murmurs, Chest CTAB, Abdo SNT A/P Episode of palpitations - resolved while on monitor in the ER, monitor on telemetry for arrhythmia, consider outpatient classroom monitor LBBB with septal akinesis - septal akinesia/ballooning on POCUS US, TTE, consult cardiology to consider ischemic testing Otherwise as above Resident Activity Tracking Resident Involvement: Resident Care Provided Care Provided: Adult Hospital Medicine
--- NOTE | 2024-03-18 14:25 | Electrocardiogram Report ---
Test Reason : Blood Pressure : */* mmHG Vent. Rate : 76 BPM Atrial Rate : 76 BPM P-R Int : 184 ms QRS Dur : 122 ms QT Int : 412 ms P-R-T Axes : 7 18 56 degrees QTcB Int : 463 ms Normal sinus rhythm Left bundle branch block Abnormal ECG When compared with ECG of 10-Mar-2020 10:36, Left bundle branch block is now Present Confirmed by Ortega Leija ([id number]) on 03/18/2024 2:25:29 PM Referred By: REFERRED SELF Confirmed By: Ortega Leija
[2024-03-18] MEDS ORDERED: ACETAMINOPHEN 325 MG TAB PO PRN (14:47)
[2024-03-18] MEDS ORDERED: MAGNESIUM HYDROXIDE SUSP 30 ML UDC PO PRN (14:47)
[2024-03-18] MEDS ORDERED: ALBUTEROL HFA 8 GM INHALER INH PRN (14:47)
[2024-03-18] MEDS ORDERED: ALUMINUM/MAGNESIUM SUSP 30 ML UDC PO PRN (14:47)
[2024-03-18] MEDS ORDERED: POLYETHYLENE (MIRALAX) 17 GM PACK PO PRN (14:47)
--- NOTE | 2024-03-18 15:32 | XCELERA ---
[id number]
[2024-03-18] MEDS: HEPARIN SOD 5,000 UNIT/0.5 ML VIAL SQ SCH (20:31)
[2024-03-18] MEDS: DORZOLAMIDE/TIMOLOL 22.3/6.8MG/ML 10 ML BTL OPB SCH (20:31)
[2024-03-18] MEDS: SIMVASTATIN 20 MG TAB PO SCH (20:32)
[2024-03-19 06:35] LABS: BUN Creatinine Ratio 23.3 (10-20); Calcium 9.1 mg/dl (8.6-10.3); Creatinine Clr Calc Pharmacy 63.6 ml/min; Potassium 3.3 mmol/L (3.5-5.1)
[2024-03-19 07:48] VITALS: RESP 18; TEMP 97.7
[2024-03-19] MEDS: PANTOprazole 40 MG TAB PO SCH (08:36)
[2024-03-19] MEDS: ANASTROZOLE 1 MG TAB PO SCH (08:36)
[2024-03-19] MEDS: MULTIVITAMIN TAB PO SCH (08:36)
[2024-03-19] MEDS: LORATADINE 10 MG TAB PO SCH (08:36)
[2024-03-19] MEDS: CEROVITE ADV FORMULA TAB PO SCH (08:36)
[2024-03-19] MEDS: POTASSIUM CHLORIDE CRTAB 20 MEQ TABCR PO STA (08:39)
[2024-03-19] MEDS: ASPIRIN 81 MG ECTAB PO SCH (08:57)
--- NOTE | 2024-03-19 09:10 | Cardiology Consultation ---
Date of Consultation March 19, 2024 Assessment & Plan (1) Heart palpitations: (2) LBBB (left bundle branch block): (3) Elevated troponin: (4) GERD (gastroesophageal reflux disease): (5) Osteoporosis: (6) Glaucoma: (7) Hypercholesterolemia: (8) Hypertension: Plan 79 year old female with h/o breast cancer s/p mastectomy, HLD, GERD, osteoporosis, and glaucoma presenting with new LBBB and echocardiogram showing EF of 50-55% and septal hypokinesis. #Palpitations: Pt's HR has ranged between 75 and 156 since presentation to ED on 03/18. She has also had mildly elevated BPs. Pt currently denying symptoms related to ischemia or arrhythmia. -Consider event monitor in outpatient setting following inpatient work up #Elevated Troponin/New LBBB: EKG with new LBBB but without ischemic changes Troponin 109 ->100.6 -> 116.3 TTE showed akinesis at septum, normal left ventricle systolic function - Consider stress echo with dobutamine to rule out ischemic changes - Consider cancerization if ischemia is found with stress echo Dispo: med-tele FEN/GI: HH diet VTE ppx: Heparin Full Code Supervising Physician Co-Signing Physician Notes Patient seen and examined. Agree with assessment and plan as outlined by Dr. Chow. Impression: 1. Symptomatic tachycardia -Heart rate 150 bpm at home, and 2 brief episodes on telemetry. -Suspect atrial flutter with 2-1 AV conduction. -Suggest 30-day event monitor as an outpatient. -Would not start long-term anticoagulation without definite evidence of atrial flutter. 2. Presumed coronary artery disease -Septal wall motion on echocardiogram. -New LBBB on EKG. -Asymptomatic in the face of an active lifestyle and exercise program. -Discussed conservative medical care versus stress testing versus cardiac catheterization. -The patient and I agree that conservative medical care is indicated at this time. -Would start low-dose metoprolol succinate. -Continue aspirin and statin therapy. -I will be happy to see her in follow-up. History of Present Illness Reason for Consultation: New LBBB, Septal wall dyskinesis Requesting Physician: Amando Babb MD Attending Physician: Dusty Syed DO History of Present Illness Pt is an 79 yo female with PMH of breast CA s/p mastectomy, osteoporosis, GERD, and hypercholesterolemia who presented to ED on afternoon of 03/18 for prolonged episode of heart palpitations the previous evening. Pt was found to have a new LBBB without other ischemic changes on EKG. Pt had an echocardiogram which showed septal wall akinesis and EF of 50-55%. No other echos were available for comparison. Pt reports the episode felt like her heart was racing which kept her from sleeping on the evening of 03/17. Seemed worse when she was laying down. She got up and moved to a recliner chair in her livingroom and was able to return to sleep. She noted upon waking in the morning on 03/18, she had elevated blood pressure per her home unit. She went to urgent care to have her BP reassessed. They performed an EKG and noted changes from previous EKG from 2019. Pt denies any chest pain, tightness, SOB, dizziness, lightheadedness, nausea, headache, back or shoulder pain during this episode or currently. (She is active on a daily basis caring for her home. She also exercises for 60 minutes using a treadmill and stationary bicycle several days each week at the [facility]. She has never experienced exertional angina pectoris or limiting dyspnea). Pt finished chemotherapy for breast cancer 3-4 years ago. She is not receiving chemotherapy treatment at this time. Allergies Allergy/AdvReac Type Severity Reaction Status Date / Time No Known Allergies Allergy Verified 03/18/24 10:01 Home Medications Medication Instructions Recorded Confirmed Type loratadine 10 mg tablet 10 mg PO QAM 02/25/20 03/18/24 History multivitamin (Multiple Vitamins 1 tab PO QAM 02/25/20 03/18/24 History tablet) anastrozole 1 mg tablet 1 mg PO DAILY 11/11/20 03/18/24 History albuterol sulfate 90 mcg/actuation 1 inh inhalation QID PRN shortness 03/10/22 03/18/24 Rx aerosol inhaler of breath or wheezing #8.5 grams utdzlbcj-wze-cizskg 5 mg-zeaxanth 4 cap PO DAILY 03/10/22 03/18/24 History 1 mg-bilberry 7.5 mg-herbal capsule (Macular Health Formula) omeprazole 20 mg tablet,delayed 20 mg PO DAILY 09/12/22 03/18/24 History release simvastatin 20 mg tablet 20 mg PO QPM #90 tabs 10/05/23 03/18/24 Rx Probiotic (Unknown Strength) 1 cap PO DAILY 03/18/24 03/18/24 History Tums 1,000 Mg 1 ea PO DAILY 03/18/24 03/18/24 History dorzolamide 22.3 mg-timolol 6.8 1 drp OPB BID 03/18/24 03/18/24 History mg/mL eye drops mometasone 0.1 % topical cream See Rx Instructions .Route .COMPLEX 03/18/24 03/18/24 History Patient History Medical History Recurrent cancer of right breast Superficial thrombophlebitis of arm Tachycardia Encounter for pre-operative examination GERD (gastroesophageal reflux disease) Pre-op testing Encounter for screening for other viral diseases Breast cancer Surgical History History of cataract surgery H/O colonoscopy (2018) S/P lumpectomy, right breast (06/19/03) Family History Mother Cancer Ovarian cancer Father Hypertension Myocardial infarction Denies family history of Prostate cancer Breast cancer Colorectal cancer Social History Smoking Status: Former smoker Age Started Using Tobacco: 19; Age Quit Using Tobacco: 23; Second Hand Exposure: No; Do You Dip or Chew Tobacco: No; Hx Alcohol Use: No Hx Substance Use: No Preferred Language: Korean Communication Ability: Effective Visual Impairment: No Limitations Hearing Ability: Normal Media/Instructional Designer Required: No Beliefs That Will Affect Care: None marital status: Current Living Situation: Spouse current occupational status: retired How many Children do You have: 3 Feels Safe at Home: Yes Childhood Exposure to Second-Hand Smoke: Yes Dental Care, Regularly: Yes Physical Activity Frequency: 3-4 Times per Week Seatbelt Use: always Sunscreen Use: Yes Assistive Devices: None Review of Systems Review of Systems: As per HPI Physical Exam Constitutional: WD/WN, vitals as above ENMT: external ear and nose normal, oropharynx normal Neck: trachea midline, no thyromegaly Respiratory: normal respiratory effort, lungs clear to auscultation Cardiovascular: Rate/Rhythm: regular rate and regular rhythm Heart Sounds: normal S1 and normal S2; no murmur Vessels: normal peripheral pulses; no JVD and no carotid bruit Extremities: no edema Gastrointestinal (Abdomen): normal bowel sounds, soft, nontender, no hepatosplenomegaly Musculoskeletal: no cyanosis or clubbing, extremities motor strength 5/5 Skin: no rashes, warm and dry Neurologic: PERRL, EOMI, accommodation nl, no face palsy, no dysarthria Psychiatric: A+Ox3, euthymic affect Results & Data Vital Signs (Past 12 Hours) Vital Signs Temp Pulse Pulse Resp BP Pulse Ox O2 Del Method 03/19/24 07:47 36.5 C 90 18 154/82 H 94 Room Air 03/19/24 07:24 85 03/19/24 03:26 36.6 C 79 16 131/75 90 Room Air 03/18/24 23:27 155 H 03/18/24 23:24 36.3 C L 75 16 138/82 91 Room Air 03/18/24 22:44 Room Air 03/18/24 21:51 87 03/18/24 21:48 156 H PG Care Time/CCT Total # of Minutes Spent Total Time Spent with Patient: Total time spent is greater than 50% in coordination of care (as documented) at patient's floor/unit and/or counseling patient: Coding Level of Care Code 05410 INT INP/OBS CARE 3/75MIN Diagnoses Heart palpitations R00.2 LBBB (left bundle branch block) I44.7 Elevated troponin R79.89 GERD (gastroesophageal reflux disease) K21.9 Osteoporosis M81.0 Glaucoma H40.9 Hypercholesterolemia E78.00 Hypertension I10 Resident Activity Tracking Resident Involvement: Resident Care Provided Care Provided: Adult Hospital Medicine
--- NOTE | 2024-03-19 10:45 | Billing Data ---
Date of Service March 18, 2024 Coding Level of Care Code 63240 INT INP/OBS CARE
[2024-03-19 11:37] VITALS: BP 127/76; O2SAT 92
--- NOTE | 2024-03-19 14:01 | Communication Note ---
Date of Service: March 19, 2024 By CMS guidelines, a determination that the admission or continued stay is not medically necessary has been made by a member of the UR committee and a ph ysician for this hospital stay, therefore a Code 44 will be completed and the Inpatient admission will be changed to outpatient.
--- NOTE | 2024-03-19 14:12 | Communication Note ---
Date of Service: March 19, 2024 By CMS guidelines, a determination that the admission or continued stay is not medically necessary has been made by a member of the UR committee and a ph ysician for this hospital stay, therefore a Code 44 will be completed and the Inpatient admission will be changed to outpatient. Amando Singh MD Member, Utilization Review Public Relations Senior Associate
[2024-03-19 14:36] VITALS: PULSE 76
--- NOTE | 2024-03-19 14:56 | Discharge Summary ---
Date of Service March 19, 2024 Admission HPI Per Admitting Provider 79 year old female with h/o breast cancer s/p mastectomy, HLD, GERD, osteoporosis, and glaucoma presenting after a prolonged episode of palpitations. Sx started abruptly around 2300 last night while patient was in bed, felt her heart racing but did not have associated chest pain, SOB, or lightheadedness. Patient monitored her vitals during this episode, HR up to the 150s at rest. Patient was eventually able to fall asleep in her recliner, estimates that sx subsided spontaneously after about 3 hours. Patient has previously experienced similar sx on multiple occasions over the past 4 years, though never for this long, palpitations normally subside within minutes. Denies h/o known arrhythmias, sx were never worked up. No further sx today. [facility], EKG notable for new LBBB when compared to EKG in 2019. Currently, patient resting comfortably, states that she feels at baseline - denies CP, SOB, lightheadedness/dizziness. ED Course: EKG with NSR, rate 76, intervals WNL, new LBBB, no ischemic changes. Troponin 109->100.6. Admission Exam Per Admitting Provider General: Alert and oriented. No acute distress Cardiac: Regular rate and rhythm, no murmurs appreciated Respiratory: Lungs clear to auscultation bilaterally, No increased work of breathing Abdominal: Soft, non-tender, non-distended. Bowel sounds present. Extremities: No lower extremity edema, calves non-tender bilaterally Principal Diagnosis Symptomatic Tachycardia, Presumed CAD Discharge Exam Constitutional: well-appearing, no acute distress HEENT: NCAT, no conjunctival injection CV: clinically well perfused Resp: no increased WOB GI: nondistended MSK: no gross deformities appreciated Skin: warm, dry, no rash appreciated Neuro: alert, oriented, no focal neurologic deficit appreciated Discharge Data Allergies Allergy/AdvReac Type Severity Reaction Status Date / Time No Known Allergies Allergy Verified 03/18/24 10:01 Consultations 03/18/24 12:56 ED Decision to Admit Stat 03/18/24 17:43 Consult Cardiology Routine Hospital Course (1) Heart palpitations: (2) LBBB (left bundle branch block): (3) Elevated troponin: (4) GERD (gastroesophageal reflux disease): (5) Osteoporosis: (6) Glaucoma: (7) Hypercholesterolemia: (8) Hypertension: Plan 79 year old female with h/o breast cancer s/p mastectomy, HLD, GERD, osteoporosis, and glaucoma presenting with new LBBB and echocardiogram showing EF of 50-55% and septal hypokinesis. #Palpitations: Pt's HR ranged between 75 and 156 She also had mildly elevated BPs. Pt currently denying symptoms related to ischemia or arrhythmia. Cards Consult: a flutter w/ 2-1 AV conduction suggest 30 event monitor no indication for long-term anticoagulation at this time #Elevated Troponin/New LBBB: EKG with new LBBB but without ischemic changes Troponin elevated to ~100; suspect demand ischemia TTE showed hypokinesis at septum, normal left ventricle systolic function Per cardiology conversation with patient: conservative medical management; start metoprolol, continue ASA and statin no acute need for stress echo or catheterization at this time follow up with cardiology Dr. Leija in office Total Time Total Time Spent Total Time Spent (In Minutes): <30 Discharge Plan Discharge Items Patient Disposition: Home - Self-Care Reason For Visit: TACHYCARDIA, PALPATATIONS Discharge Diagnosis: tachycardia Activity: Resume your previous activity Non-emergency contact: Primary Care Provider and Construction Framer Call non-emergency contact if: you have any medication questions and your symptoms worsen Follow-up/Referrals: Rebecca Cunha MD [Primary Care Provider] - 03/26/24 3:00 pm Diet: Heart Healthy Addtl Attending Provider Instructions: your racing heart was likely atrial flutter - for now we'll have you on a low dose of metoprolol to help keep the rates "in check" and then the cardiology office should be calling you to set up an event monitor to follow your rhythms at home. if we see for sure atrial flutter (or its cousin atrial fibrillation) then we'll start you on a blood thinner as well as far as the appearance of an old heart attack - given how well you function/exert/exercise - observation is going to be the better plan here - if y ou were to start to notice the "ceiling coming down" on your ability to exert, then we'd want to approach things more aggressively - but given that this clearly appears old, and does not seem to be causing you any symptoms, it appears far more consistent with a situation where "all the damage that can be done, has been done" and doing a heart cath to better evaluate your coronaries is not very likely to give you any real benefit. new symptoms/new fatigue/worsening ability to exercise would all be game changing - but for now the same metoprolol for the presumed atrial flutter helps protect your heart, and taking an 81mg aspirin daily helps protect any current coronary blockages Pending Studies at Discharge: No Stand-Alone Forms: My [facility] Medications and DC Order Prescriptions: New metoprolol succinate 25 mg tablet extended release 24 hr 25 mg PO DAILY Qty: 30 0RF aspirin 81 mg tablet,delayed release (DR/EC) 81 mg PO DAILY Qty: 30 0RF Continued simvastatin 20 mg tablet 20 mg PO QPM Qty: 90 3RF anastrozole 1 mg tablet 1 mg PO DAILY omeprazole 20 mg tablet,delayed release (DR/EC) 20 mg PO DAILY [facility] Formula 5-1-7.5 mg capsule 4 cap PO DAILY albuterol sulfate 90 mcg/actuation HFA aerosol inhaler 1 inh inhalation QID PRN (Reason: shortness of breath or wheezing) Qty: 8.5 4RF loratadine 10 mg Tablet 10 mg PO QAM multivitamin [Multiple Vitamins] tablet 1 tab PO QAM dorzolamide-timolol 22.3-6.8 mg/mL drops 1 drp OPB BID Tums 1,000 Mg 1 ea PO DAILY mometasone 0.1 % cream See Rx Instructions .ROUTE .COMPLEX Rx Instructions: Apply to affected areas on trunk and extremities twice daily x 2 weeks as needed for flaring. Probiotic (Unknown Strength) 1 cap PO DAILY Discharge Orders: Discharge Order (Routine); Ordered 03/19/24 Ordered By: Dusty Magallon/Other Patient Handouts: Metoprolol Oral Tablet Admission Data Admit Date/Time: 03/18/24 13:20 Attending Provider: Dusty Syed Admit Provider: Aakash Gooden Primary Care Provider: Rebecca Cunha V. Other Providers: Amando Babb; Ortega Leija Other Interventions: Discharge Summary Assessment (RN) Last Done: 03/19/24 14:34 Supervising Physician Co-Signing Physician Notes I personally examined the patient and verified all nino points of history and exam, discussed case, and agree with decision making with Dr Loya feeling good feels up to going home d/w cardiology input appreciated vitals noted nad heent nc at mmm breathing unlabored no accessory muscles good effort skin no rashes no pallor or icterus tachycardia - metoprolol, outpt monitoring. troponin likely reflects demand ischemia from this new LBBB/wall motion abnormalities - age indeterminate NV from underlying CAD - however, agree w cardiology given pt's high level of function/exertion - seems more likely that an aggressive approach would have little benefit to her and therefore be an unfavorable risk/benefit balance. discussed sx to watch for - and should she develop them would then obviously escalate care. add asa safe/stable for home, otherwise as above Resident Activity Tracking Resident Involvement: Resident Care Provided Care Provided: Adult Hospital Medicine
--- NOTE | 2024-03-19 17:46 | Billing Data ---
Date of Service March 19, 2024 Coding Level of Care Code 99566 IN/OBS DISCH 30 MIN/LESS
== END 2024-03-19 15:08 | disposition home or self-care (01) ==
LOC: ED 10:59 → INTOOBSV 13:20 → SUATTDRO 13:20 → 2N 13:20

== ENCOUNTER 2024-08-09 04:38 | Observation (INO) ==
[2024-08-09 05:17] LABS: Basophils # (auto) 0.05 K/uL (0.00-0.20); Basophils % (auto) 0.4 %; Eosinophils % (auto) 2.5 %; Hematocrit (blood only) 43.4 % (37.0-47.0); Hemoglobin 14.7 g/dl (12.0-16.0); Immature Granulocytes # (auto) 0.05 K/uL (0.01-0.20); Immature Granulocytes % (auto) 0.4 %; Lymphocytes # (auto) 1.05 K/uL (1.20-3.40); Lymphocytes % (auto) 8.7 %; Mean Corpuscular Hemoglobin 30.2 pg (25.0-34.0); Mean Corpuscular Hgb Conc 33.9 g/dL (32.0-36.0); Mean Corpuscular Volume 89.3 fL (80.0-100.0); Mean Platelet Volume 11.2 fL (9.4-12.4); Monocytes # (auto) 0.46 K/uL (0.11-0.59); Monocytes % (auto) 3.8 %; Neutrophils % (auto) 84.2 %; Platelet Count 208 K/uL (130-400); RDW Coefficient of Variation 12.9 % (11.5-14.5); RDW Standard Deviation 42.6 fL (36.4-46.3); Red Blood Count 4.86 M/uL (4.20-5.40); White Blood Count 12.11 K/ul (4.8-10.8)
[2024-08-09 05:29] LABS: Alanine Aminotransferase 31 U/L (7-52); Albumin Globulin Ratio 1.1 (0.9-2); Albumin Level 4.3 gm/dl (3.4-5.0); Alkaline Phosphatase 79 U/L (34-104); Anion Gap 7 (3-11); Aspartate Aminotransferase 35 U/L (13-39); BUN Creatinine Ratio 23.1 (10-20); Bilirubin,Total 0.9 mg/dl (0.2-1.0); Blood Urea Nitrogen 18 mg/dl (6-23); Calcium 9.5 mg/dl (8.6-10.3); Carbon Dioxide 24 mmol/L (21-32); Chloride 108 mmol/L (98-107); Creatinine Clr Calc Pharmacy 55.9 ml/min; Glucose 118 mg/dl (70-99(Fasting)); Magnesium 1.8 mg/dl (1.7-2.4); Potassium 4.2 mmol/L (3.5-5.1); Sodium 139 mmol/L (136-145); Total Protein 8.3 gm/dl (6.0-8.3)
[2024-08-09 05:35] LABS: Troponin I High Sensitivity < 2.3 pg/ml (0-14)
[2024-08-09 05:44] LABS: Thyroid Stimulating Hormone 2.727 uIu/ml (0.300-4.500)
--- NOTE | 2024-08-09 05:44 | Emergency Department Note ---
Impression & Plan Supraventricular tachycardia, Acute dyspnea Admit to the [facility] ED Provider Note NAME: JASON DUKE AGE: 79 SEX: Female INFORMANT: Patient ED PROVIDER(S): Elli Villela DO CHIEF COMPLAINT: Shortness of breath PLAN: Disposition: Admit to the [facility] MEDICAL DECISION MAKING: This is an 79-year-old female who presents to the emergency department not feeling well complaining of an acute onset of shortness of breath at 10 PM. P lázaro describes intermittent episodes for period of 2 weeks which suddenly stopped after seeing her butt presser. At 10 PM last evening, the patient was laying down for bed when she suddenly began to feel short of breath. She tried using her inhaler because she thought she was wheezing but this did not help. On physical exam, lung sounds are clear and O2 saturations are normal. EKG shows a left bundle branch block but this is a chronic finding for the patient. She does have some deeper ST segment depressions in the inferior leads. While the patient was on the radiation monitor, she did have a 15-second run of SVT with associated increased significant dyspnea. Laboratory studies were fairly unremarkable with normal H&H and renal function. Glucose was 118. Troponin and TSH were normal. Magnesium was normal. BNP was 48. Chest x-ray shows an elevated right hemidiaphragm which was chronic in nature and there was no evidence of significant cardiomegaly. [facility] for further [facility] care. Care/management discussed with: [facility] manager [facility] Triage Nursing notes: reviewed and agree with them. Vital Signs: reviewed and unremarkable Additional History obtained from: The patient's who is at the bedside Differential Diagnosis: CHF, reactive airway disease, anxiety, cardiac dysrhythmia, STEMI, NSTEMI Diagnostics, independently interpreted by me: ECG: normal sinus rhythm at a rate of 99 with a left bundle branch block. There is ST segment depression in leads II, III and aVF. There is no ectopy Cardiac Monitoring: normal sinus rhythm at a rate of 96 Imaging studies: portable chest x-ray: No evidence of cardiomegaly. There is an elevated right hemidiaphragm but this is chronic for the patient as per my independent interpretation HPI: 79 year old Female arrives for evaluation of Shortness of breath. patient states that she developed significant shortness of breath at 10 PM. patient explains that she has been feeling well for the past 2 weeks with no specific episodes of shortness of breath until tonight when she had a sudden onset of not feeling well and shortness of breath began. She tried laying down but the shortness of breath worsened. She tried using her inhaler but that did not work. PAST MEDICAL HISTORY: See Below, PAST SURGICAL HISTORY: See Below, SOCIAL HISTORY: See Below, HOME MEDICATIONS: See list ALLERGIES: None VITALS: See Below PHYSICAL EXAMINATION: HEENT: Head - normocephalic and atraumatic. Pupils are equal, round, and reactive to light. Extraocular eye muscles are intact, and sclera are anicteric. Nose - moist nasal mucosa without discharge. Mouth - moist buccal mucosa. Oropharynx is nonerythematous and there is no tonsillar exudate or edema noted. Neck: Supple; no JVD, nuchal rigidity, cervical lymphadenopathy, or auscultated bruits. Heart: Regular rate and rhythm. There is a normal S1 and S2 with no murmurs, clicks, or gallops appreciated. Lungs: Clear to auscultation bilaterally with no wheezes, rales, or rhonchi. Abdomen: Soft, completely nontender, nondistended, with good bowel sounds. There are no palpable pulsatile masses or hepatosplenomegaly. There is no guarding, rigidity, or rebound noted. Extremities: No evidence of cyanosis, clubbing, or edema. There are easily palpable peripheral pulses. Skin: warm and dry with good turgor and no rashes. emergency department course: The patient was evaluated in room A-11. A complete history and physical was performed. An order was placed for continuous cardiac monitoring. Patient is in a normal sinus rhythm at a rate of 96. Twelve-lead EKG was obtained as described above. Laboratory studies were drawn as above. Portable chest x-ray was performed. Patient had an episode of SVT caught on the monitor at a rate in the 160s. Patient was symptomatic with this. I discussed the case with the [facility] Hospitalist and they want admit for further inpatient care. Past Med/Surg History Problem List (Updated 08/09/24 @ 17:27 by Elli Villela DO) Acute dyspnea (Acute) Supraventricular tachycardia (Acute) Demand ischemia CAD (coronary artery disease) Paroxysmal atrial fibrillation Echocardiogram abnormal Moderate mitral regurgitation Large hiatal hernia Tachycardia Elevated troponin LBBB (left bundle branch block) (Acute) Heart palpitations (Acute) Non-ST elevation [place] (NSTEMI) (Acute) Osteoporosis Allergy OA (osteoarthritis) GERD (gastroesophageal reflux disease) Health care maintenance H/O right mastectomy (03/15/20) Right mastectomy with sentinel lymph node biopsy and additional lymph node excision. Dr. William 03/15/2020 Benign colonic polyp (Chronic) Diverticulosis (Chronic) Glaucoma (Chronic) Hypercholesterolemia (Chronic) Incomplete uterovaginal prolapse (Chronic) Internal hemorrhoids (Chronic) Osteopenia (Chronic) Medical History Low serum potassium Recurrent cancer of right breast Superficial thrombophlebitis of arm Encounter for pre-operative examination GERD (gastroesophageal reflux disease) Pre-op testing Encounter for screening for other viral diseases Breast cancer Surgical History History of cataract surgery H/O colonoscopy (2018) S/P lumpectomy, right breast (06/19/03) Family History Mother Cancer Ovarian cancer Father Hypertension Myocardial infarction Denies family history of Prostate cancer Breast cancer Colorectal cancer Social History Smoking Status: Former smoker Tobacco Type: Cigarettes Age Started Using Tobacco: 19; Age Quit Using Tobacco: 23; packs per day: 0.25; Second Hand Exposure: No; Do You Dip or Chew Tobacco: No; Hx Alcohol Use: No Hx Substance Use: No Preferred Language: Mongolian Communication Ability: Effective Visual Impairment: No Limitations Hearing Ability: Normal Senior Clerk Required: No Beliefs That Will Affect Care: None marital status: Current Living Situation: Spouse current occupational status: retired How many Children do You have: 3 Other Information That Helps Us Care for You: No Feels Safe at Home: Yes Safety Concerns: Feels Safe At This Time Childhood Exposure to Second-Hand Smoke: Yes Dental Care, Regularly: Yes Physical Activity Frequency: 3-4 Times per Week Seatbelt Use: always Sunscreen Use: Yes Assistive Devices: Glasses Assistive Devices Comment: Does not have states onlly uses to drive Allergies Allergies Allergy/AdvReac Type Severity Reaction Status Date / Time No Known Allergies Allergy Verified 07/30/24 13:32 Home Meds Home Medications Medication Instructions Recorded Confirmed loratadine 10 mg tablet 10 mg PO QAM 02/25/20 08/09/24 multivitamin (Multiple Vitamins 1 tab PO QAM 02/25/20 08/09/24 tablet) anastrozole 1 mg tablet 1 mg PO DAILY 11/11/20 08/09/24 [id number] 5 mg-zeaxanth 4 cap PO DAILY 03/10/22 08/09/24 1 mg-bilberry 7.5 mg-herbal capsule (Macular Health Formula) omeprazole 20 mg tablet,delayed 20 mg PO UD 09/12/22 08/09/24 release Probiotic (Unknown Strength) 1 cap PO DAILY 03/18/24 08/09/24 Tums 1,000 Mg 1 ea PO DAILY 03/18/24 08/09/24 mometasone 0.1 % topical cream 1 applic topical UD PRN flaring 03/18/24 08/09/24 dorzolamide 22.3 mg-timolol 6.8 1 drp OPB UD 07/30/24 08/09/24 mg/mL eye drops Previous Rx's Medication Instructions Recorded simvastatin 20 mg tablet 20 mg PO QPM #90 tabs 10/05/23 aspirin 81 mg tablet,delayed 81 mg PO DAILY #30 tabs 03/19/24 release metoprolol succinate 25 mg 25 mg PO DAILY #90 tabs 04/04/24 tablet,extended release 24 hr rivaroxaban 20 mg tablet (Xarelto) 20 mg PO DAILY #90 tabs 04/08/24 albuterol sulfate 90 mcg/actuation 1 inh inhalation QID PRN shortness 06/11/24 aerosol inhaler of breath or wheezing #8.5 grams Results & Data (ED) Vital Signs Vital Signs - 24 hr 08/09/24 04:47 08/09/24 04:51 08/09/24 05:09 Temperature 36.7 C Temperature Source Temporal Artery Scan Pulse Rate 104 H 96 H Pulse Rate [Apical] 90 Respiratory Rate 20 22 Respiratory Effort / Characteristics Spontaneous Short of Breath Respiratory Depth Normal Blood Pressure 163/93 H Blood Pressure [Left Arm] 162/95 H Blood Pressure Mean 116 Blood Pressure Mean [Left Arm] 117 Blood Pressure Position [Left Arm] Pulse Oximetry 90 90 Oxygen Delivery Method Room Air Room Air Oxygen Flow Rate Sepsis Recent Fever Within 48 Hours No Sepsis New/Unexplained Change in Mental Status N/A Sepsis Action Taken by Nursing No Action Required Oxygen Flow Rate - Titration Pulse Oximetry Post Tiitration 08/09/24 06:00 08/09/24 06:14 08/09/24 06:16 Temperature Temperature Source Pulse Rate 178 H 92 H Pulse Rate [Apical] Respiratory Rate Respiratory Effort / Characteristics Respiratory Depth Blood Pressure Blood Pressure [Left Arm] Blood Pressure Mean Blood Pressure Mean [Left Arm] Blood Pressure Position [Left Arm] Pulse Oximetry 89 L Oxygen Delivery Method Room Air Oxygen Flow Rate 0 Sepsis Recent Fever Within 48 Hours Sepsis New/Unexplained Change in Mental Status Sepsis Action Taken by Nursing Oxygen Flow Rate - Titration 2 Pulse Oximetry Post Tiitration 92 08/09/24 06:16 08/09/24 06:30 08/09/24 08:00 Temperature Temperature Source Pulse Rate Pulse Rate [Apical] 92 H 82 81 Respiratory Rate 22 22 17 Respiratory Effort / Characteristics Non-Labored Spontaneous Respiratory Depth Normal Blood Pressure Blood Pressure [Left Arm] 160/90 H 161/78 H 136/84 Blood Pressure Mean Blood Pressure Mean [Left Arm] 113 105 101 Blood Pressure Position [Left Arm] Semi-fowlers Pulse Oximetry 92 92 92 Oxygen Delivery Method Nasal Cannula Nasal Cannula Nasal Cannula Oxygen Flow Rate 2 2 2 Sepsis Recent Fever Within 48 Hours Sepsis New/Unexplained Change in Mental Status Sepsis Action Taken by Nursing Oxygen Flow Rate - Titration Pulse Oximetry Post Tiitration Laboratory Data 08/09/24 04:58 08/09/24 04:58 Lab Results 08/09/24 Range/Units 04:58 WBC 12.11 H (4.8-10.8) K/ul RBC 4.86 (4.20-5.40) M/uL Hgb 14.7 (12.0-16.0) g/dl Hct 43.4 (37.0-47.0) % MCV 89.3 (80.0-100.0) fL MCH 30.2 (25.0-34.0) pg MCHC 33.9 (32.0-36.0) g/dL RDW Std Deviation 42.6 (36.4-46.3) fL RDW Coeff of Lucien 12.9 (11.5-14.5) % Plt Count 208 (130-400) K/uL MPV 11.2 (9.4-12.4) fL Immature Gran % (Auto) 0.4 % Neut % (Auto) 84.2 % Lymph % (Auto) 8.7 % [place] % (Auto) 3.8 % Eos % (Auto) 2.5 % Baso % (Auto) 0.4 % Neut # (Auto) 10.20 H (1.40-6.50) K/uL Lymph # (Auto) 1.05 L (1.20-3.40) K/uL [place] # (Auto) 0.46 (0.11-0.59) K/uL Eos # (Auto) 0.30 (0.00-0.50) K/uL Baso # (Auto) 0.05 (0.00-0.20) K/uL Immature Gran # (Auto) 0.05 (0.01-0.20) K/uL Sodium 139 (136-145) mmol/L Potassium 4.2 (3.5-5.1) mmol/L Chloride 108 H (98-107) mmol/L Carbon Dioxide 24 (21-32) mmol/L Anion Gap 7 (3-11) BUN 18 (6-23) mg/dl Creatinine 0.78 (0.6-1.2) mg/dl Est Cr Clr Drug Dosing 55.9 ml/min eGFR 76.26 BUN/Creatinine Ratio 23.1 H (10-20) Glucose 118 H (70-99(Fasting)) mg/dl Calcium 9.5 (8.6-10.3) mg/dl Magnesium 1.8 (1.7-2.4) mg/dl Total Bilirubin 0.9 (0.2-1.0) mg/dl AST 35 (13-39) U/L ALT 31 (7-52) U/L Alkaline Phosphatase 79 (34-104) U/L Troponin I High Sens < 2.3 (0-14) pg/ml B-Natriuretic Peptide 48 (0-100) pg/ml Total Protein 8.3 (6.0-8.3) gm/dl Albumin 4.3 (3.4-5.0) gm/dl Globulin 4.0 (2.5-4.0) gm/dl Albumin/Globulin Ratio 1.1 (0.9-2) TSH 2.727 (0.300-4.500) uIu/ml Administered Medications Anastrozole (Anastrozole 1 Mg Tab) 1 mg PO DAILY TAMMY Stop: 09/08/24 11:23 Last Admin: 08/09/24 17:05 Dose: 1 mg Documented By: KRISTI Co-signed By: ESL Aspirin (Aspirin 81 Mg Ectab) 81 mg PO DAILY TAMMY Stop: 09/08/24 11:23 Last Admin: 08/09/24 13:08 Dose: 81 mg Documented By: CB Dorzolamide/Timolol (Dorzolamide/Timolol 22.3/6.8mg/Ml 10 Ml Btl) 1 drops OPB DAILY TAMMY Stop: 09/08/24 11:23 Last Admin: 08/09/24 13:10 Dose: 1 drops Documented By: KRISTI Metoprolol Succinate (Metoprolol Succ 25mg Ext Rel Tab) 25 mg PO DAILY TAMMY Stop: 09/08/24 11:23 Last Admin: 08/09/24 13:08 Dose: 25 mg Documented By: KRISTI Pantoprazole Sodium (Pantoprazole 40 Mg Tab) 40 mg PO DAILY TAMMY Stop: 09/08/24 11:29 Last Admin: 08/09/24 13:08 Dose: 40 mg Documented By: CB Rivaroxaban (Rivaroxaban 20 Mg Tab) 20 mg PO DAILY TAMMY Stop: 09/08/24 11:23 Last Admin: 08/09/24 13:08 Dose: 20 mg Documented By: KRISTI Discontinued Medications Calcium Carbonate (Calcium Carbonate 500 Mg Chewable Tab) 500 mg PO DAILY TAMMY Stop: 09/08/24 11:44 Last Admin: 08/09/24 14:28 Dose: Not Given Documented By: KRISTI Imaging Data Radiologist's Impression: Chest X-Ray 08/09/24 05:40 EXAM: XR chest 1V portable CLINICAL HISTORY: SOB. TECHNIQUE: An X-ray image of the chest is obtained in AP projection. COMPARISON: Compared to the prior study dated 07/14/2024. FINDINGS: Pulmonary Parenchyma: Elevated right hemidiaphragm. Unchanged. Lungs are clear bilaterally. No evidence of consolidation, collapse, or focal opacities. No pulmonary nodules are identified. No evidence of pleural effusion or pleural thickening. Heart and Mediastinum: Heart size and shape are normal. No mediastinal widening or masses. No hilar or mediastinal lymphadenopathy. Small supradiaphragmatic opacity overlying the heart shadow. This is likely hiatal hernia. Unchanged. Bony Thorax: Bony thorax appears intact without fractures or deformities. Soft Tissues: Soft tissues overlying the chest wall are unremarkable. IMPRESSION: 1. Elevated right hemidiaphragm. Unchanged. 2. Unchanged hiatal hernia. 3. No acute cardiopulmonary abnormalities are identified. 4. No time interval significant changes. Electronically signed by Lester Mejias 08-09-2024 06:25 AM Discharge Plan Visit Data Chief Complaint: Arrhythmia/Palpitations Stated Complaint: A FIB? - JUST NOT FEELING RIGHT ED Provider: Elli Villela Discharge Problem: Supraventricular tachycardia, Acute dyspnea Patient Disposition: Admitted As Inpatient Discharge Instructions Interventions: ED Discharge Assessment Last Done: 08/09/24 11:24
--- NOTE | 2024-08-09 06:26 | XRay Report ---
EXAM: XR chest 1V portable CLINICAL HISTORY: SOB. TECHNIQUE: An X-ray image of the chest is obtained in AP projection. COMPARISON: Compared to the prior study dated 07/14/2024. FINDINGS: Pulmonary Parenchyma: Elevated right hemidiaphragm. Unchanged. Lungs are clear bilaterally. No evidence of consolidation, collapse, or focal opacities. No pulmonary nodules are identified. No evidence of pleural effusion or pleural thickening. Heart and Mediastinum: Heart size and shape are normal. No mediastinal widening or masses. No hilar or mediastinal lymphadenopathy. Small supradiaphragmatic opacity overlying the heart shadow. This is likely hiatal hernia. Unchanged. Bony Thorax: Bony thorax appears intact without fractures or deformities. Soft Tissues: Soft tissues overlying the chest wall are unremarkable. IMPRESSION: 1. Elevated right hemidiaphragm. Unchanged. 2. Unchanged hiatal hernia. 3. No acute cardiopulmonary abnormalities are identified. 4. No time interval significant changes. Electronically signed by Lester Mejias 08-09-2024 06:25 AM
--- NOTE | 2024-08-09 08:28 | History & Physical Report ---
Date of Service August 09, 2024 Assessment & Plan (1) Paroxysmal atrial fibrillation: (2) LBBB (left bundle branch block): (3) Osteoporosis: (4) GERD (gastroesophageal reflux disease): (5) H/O right mastectomy: (6) Glaucoma: (7) Hypercholesterolemia: (8) Hypertension: Plan Gabriela is an 79yo F with h/o breast cancer s/p mastectomy, HLD, GERD, osteoporosis, glaucoma, LBBB, and recently-diagnosed (Mar 2024) paroxysmal afib/flutter, who presented to the ED for chest heaviness and SOB. She was admitted for monitoring apparent SVT. Wide-complex tachycardia - Pt presenting w/ SOB and sense of heaviness on chest, no CP or palpitations. - Rhythm strip in ED w/ apparent SVT; pt does have prior EKGs & cardiac monitoring showing episodes of SVT vs a.flutter - Labs unremarkable. Trop < 2.3. BNP 48. TSH 2.727. Mg 1.8 CXR unchanged from prior studies. Has echo scheduled for Aug 12. - Cards consult not indicated at this time. Plan for outpatient EP f/u, potential ablation - Admit for continual cardiac monitoring Paroxysmal afib - Diagnosed in Mar 2024 after pt experienced prolonged palpitations/tachycardia - Echo at that time notable for mild-mod MR, septal akinesis, and EF 50-55% - Currently nsr. Continue rate control w/ metoprolol and anticoag w/ Xarelto Chronic, stable conditions: - H/o breast cancer: continue home anastrozole - HLD: continue home simvastatin - Glaucoma: continue home dorzolamide-timolol - GERD: continue home omeprazole Diet: HH VTE ppx: on xarelto Dispo: admit to med-tele Full code History of Present Illness Primary Care Provider: Rebecca Cunha MD Gabriela is an 79yo F with h/o breast cancer s/p mastectomy, HLD, GERD, osteoporosis, glaucoma, and recently-diagnosed (Mar 2024) paroxysmal afib/flutter, who presented to the ED with chest heaviness and SOB. Sx started several weeks ago w chest pressure & dypnea. Went to urgent care last month and was given augmentin & albuterol for sinusitis. CXR at that time was normal. Sx persisted for a few weeks despite the abx and inhaler, and then appeared to spontaneously resolve. She had an apt w cardiology (Dr. Leija) recently and was asymptomatic at that time. Her symptoms suddenly returned last night, prompting her visit to the ED. Reports that before her afib dx, she had been feeling her heart pounding; shes had no palpitations or similar sx recently. Denies chest pain, says its more like a heaviness in her chest, worse if she lies flat so she typically sleeps w several pillows & on her side. Exercises regularly and denies and Dodson. No syncope or presyncope, PND, lower extremity edema, or claudication. Has been using the inhaler intermittently for this ongoing SOB, and did use it last night. Allergies Allergy/AdvReac Type Severity Reaction Status Date / Time No Known Allergies Allergy Verified 07/30/24 13:32 Home Medications Medication Instructions Recorded Confirmed Type loratadine 10 mg tablet 10 mg PO QAM 02/25/20 08/09/24 History multivitamin (Multiple Vitamins 1 tab PO QAM 02/25/20 08/09/24 History tablet) anastrozole 1 mg tablet 1 mg PO DAILY 11/11/20 08/09/24 History oxdamnvh-zeg-uwpqfr 5 mg-zeaxanth 4 cap PO DAILY 03/10/22 08/09/24 History 1 mg-bilberry 7.5 mg-herbal capsule (Macular Health Formula) omeprazole 20 mg tablet,delayed 20 mg PO UD 09/12/22 08/09/24 History release simvastatin 20 mg tablet 20 mg PO QPM #90 tabs 10/05/23 08/09/24 Rx Probiotic (Unknown Strength) 1 cap PO DAILY 03/18/24 08/09/24 History Tums 1,000 Mg 1 ea PO DAILY 03/18/24 08/09/24 History mometasone 0.1 % topical cream 1 applic topical UD PRN flaring 03/18/24 08/09/24 History aspirin 81 mg tablet,delayed 81 mg PO DAILY #30 tabs 03/19/24 08/09/24 Rx release metoprolol succinate 25 mg 25 mg PO DAILY #90 tabs 04/04/24 08/09/24 Rx tablet,extended release 24 hr rivaroxaban 20 mg tablet (Xarelto) 20 mg PO DAILY #90 tabs 04/08/24 08/09/24 Rx albuterol sulfate 90 mcg/actuation 1 inh inhalation QID PRN shortness 06/11/24 08/09/24 Rx aerosol inhaler of breath or wheezing #8.5 grams dorzolamide 22.3 mg-timolol 6.8 1 drp OPB UD 07/30/24 08/09/24 History mg/mL eye drops Past Med/Surg History Problem List Demand ischemia CAD (coronary artery disease) Paroxysmal atrial fibrillation Echocardiogram abnormal Moderate mitral regurgitation Large hiatal hernia Tachycardia Elevated troponin LBBB (left bundle branch block) (Acute) Heart palpitations (Acute) Non-ST elevation MN (NSTEMI) (Acute) Osteoporosis Allergy OA (osteoarthritis) GERD (gastroesophageal reflux disease) Health care maintenance H/O right mastectomy (03/15/20) Right mastectomy with sentinel lymph node biopsy and additional lymph node excision. Dr. William 03/15/2020 Benign colonic polyp (Chronic) Diverticulosis (Chronic) Glaucoma (Chronic) Hypercholesterolemia (Chronic) Incomplete uterovaginal prolapse (Chronic) Internal hemorrhoids (Chronic) Osteopenia (Chronic) Medical History Low serum potassium Recurrent cancer of right breast Superficial thrombophlebitis of arm Encounter for pre-operative examination GERD (gastroesophageal reflux disease) Pre-op testing Encounter for screening for other viral diseases Breast cancer Surgical History History of cataract surgery H/O colonoscopy (2018) S/P lumpectomy, right breast (06/19/03) Family History Mother Cancer Ovarian cancer Father Hypertension Myocardial infarction Denies family history of Prostate cancer Breast cancer Colorectal cancer Social History Smoking Status: Former smoker Tobacco Type: Cigarettes Age Started Using Tobacco: 19; Age Quit Using Tobacco: 23; packs per day: 0.25; Second Hand Exposure: No; Do You Dip or Chew Tobacco: No; Hx Alcohol Use: No Hx Substance Use: No Preferred Language: Tongan Communication Ability: Effective Visual Impairment: No Limitations Hearing Ability: Normal 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 Beliefs That Will Affect Care: None marital status: Current Living Situation: Spouse current occupational status: retired How many Children do You have: 3 Other Information That Helps Us Care for You: No Feels Safe at Home: Yes Safety Concerns: Feels Safe At This Time Childhood Exposure to Second-Hand Smoke: Yes Dental Care, Regularly: Yes Physical Activity Frequency: 3-4 Times per Week Seatbelt Use: always Sunscreen Use: Yes Assistive Devices: Glasses Assistive Devices Comment: Does not have states onlly uses to drive Review of Systems Review of Systems: Constitutional: denies fever, chills, fatigue, unintended weight changes HEENT: denies congestion, sore throat CV: +chest heaviness; denies chest pain, palpitations, leg swelling Resp: +SOB; denies cough, wheezing GI: denies abd pain, n/v/c/d : denies dysuria or change in urinary frequency Neuro: denies MOLINA, lightheadedness, numbness, tingling, weakness Physical Exam Physical Exam: Gen: NAD, WD/WN, resting comfortably in bed HEENT: NCAT, MMM, OP clear, no LAD CV: slightly elevated rate, regular rhythm, no m/r/g, cap refill < 3 sec, no LE edema Resp: CTAB, no wheezing, breathing non-labored, on 2L NC Abd: Soft, NT/ND, +BS Ext: Full ROM, no gross deformities, no calf tenderness Skin: Warm, dry, well-perfused, no rashes or lesions Neuro: A&O, EOMI, face symmetric, normal phonation, SILT face and ext x4, str 5/5 Psych: Mood-affect congruent. Speech pace and content normal. Results & Data Results & Data Vital Signs (Past 12 Hours) Vital Signs Temp Pulse Pulse Resp BP BP Pulse Ox 08/09/24 08:00 81 17 136/84 92 08/09/24 06:30 82 22 161/78 H 92 08/09/24 06:16 92 H 22 160/90 H 92 08/09/24 06:16 92 H 08/09/24 06:14 178 H 08/09/24 06:00 89 L 08/09/24 05:09 90 22 162/95 H 90 03/29/25 04:51 96 H 08/09/24 04:47 36.7 C 104 H 20 163/93 H 90 O2 Del Method O2 Flow Rate 08/09/24 08:00 Nasal Cannula 2 08/09/24 06:30 Nasal Cannula 2 08/09/24 06:16 Nasal Cannula 2 08/09/24 06:16 08/09/24 06:14 08/09/24 06:00 Room Air 0 08/09/24 05:09 Room Air 08/09/24 04:51 08/09/24 04:47 Room Air Laboratory Results 08/09/24 04:58 WBC 12.11 H RBC 4.86 Hgb 14.7 Hct 43.4 MCV 89.3 MCH 30.2 MCHC 33.9 RDW Std Deviation 42.6 RDW Coeff of Lucien 12.9 Plt Count 208 MPV 11.2 Immature Gran % (Auto) 0.4 Neut % (Auto) 84.2 Lymph % (Auto) 8.7 Dauphin % (Auto) 3.8 Eos % (Auto) 2.5 Baso % (Auto) 0.4 Neut # (Auto) 10.20 H Lymph # (Auto) 1.05 L Dauphin # (Auto) 0.46 Eos # (Auto) 0.30 Baso # (Auto) 0.05 Immature Gran # (Auto) 0.05 Sodium 139 Potassium 4.2 Chloride 108 H Carbon Dioxide 24 Anion Gap 7 BUN 18 Creatinine 0.78 Est Cr Clr Drug Dosing 55.9 eGFR 76.26 BUN/Creatinine Ratio 23.1 H Glucose 118 H Calcium 9.5 Magnesium 1.8 Total Bilirubin 0.9 AST 35 ALT 31 Alkaline Phosphatase 79 Troponin I High Sens < 2.3 B-Natriuretic Peptide 48 Total Protein 8.3 Albumin 4.3 Globulin 4.0 Albumin/Globulin Ratio 1.1 TSH 2.727 Supervising Physician Co-Signing Physician Notes I personally examined the patient and verified all nino points of history and exam, discussed case, and agree with decision making with Dr Benz feeling better now. chest pressure and short of breath for several hours last night and into getting to ER vitals noted nad heent nc at mmm breathing unlabored no accessory muscles good effort no r/r/w cardio reg but distant no r/m/g. labs, diagnostics/, EKGs reviewed - LBBB - i am not yet able to locate the rhythm strip that showed possible SVT chest pressure -between the fact that she exercises regularly and this was onset at rest/no preceding exertional worsneing, if it was CAD related it would almost had to have been an MN - neg trop really reassuring in this regard (similarly sx for hours with neg troponin making ischemia quite unlikely) -positional raised the question of CHF but with clear lungs no hypoxia etc this is effectively ruled out ---strongly suspect pressure was from tachycardia from arrythmia - most likely flutter given she's had this, but ER physician did suspect SVT - either way it has resolved and she feels better; either way with a short run and no ischemia secondary to the tachycardia, not clear that med escalation would be of benefit and ablation certainly not urgent/questionable electively. -follow overnight to ensure no recurrence and to get a better feel for ?risks/benefit of increasing metoprolol -check echo for completeness -likely home tomorrow -scheduled with dr leija in the near future already Resident Activity Tracking Resident Involvement: Resident Care Provided Care Provided: Adult Hospital Medicine
[2024-08-09] MEDS ORDERED: ACETAMINOPHEN 325 MG TAB PO PRN (11:24)
[2024-08-09] MEDS ORDERED: POLYETHYLENE (MIRALAX) 17 GM PACK PO PRN (11:24)
[2024-08-09] MEDS ORDERED: NITROGLYCERIN SL 0.4 MG/TAB TAB SL PRN (11:24)
--- NOTE | 2024-08-09 12:02 | Electrocardiogram Report ---
Test Reason : Blood Pressure : */* mmHG Vent. Rate : 99 BPM Atrial Rate : 99 BPM P-R Int : 172 ms QRS Dur : 122 ms QT Int : 364 ms P-R-T Axes : 40 56 56 degrees QTcB Int : 467 ms Normal sinus rhythm Left bundle branch block Abnormal ECG When compared with ECG of 18-Mar-2024 11:23, T wave inversion now evident in Inferior leads Confirmed by Valery Loco (Fantasma) on 08/09/2024 12:02:00 PM Referred By: REFERRED SELF Confirmed By: Valery Loco
[2024-08-09] MEDS: RIVAROXABAN 20 MG TAB PO SCH (13:08)
[2024-08-09] MEDS: PANTOprazole 40 MG TAB PO SCH (13:08)
[2024-08-09] MEDS: ASPIRIN 81 MG ECTAB PO SCH (13:08)
[2024-08-09] MEDS: METOPROLOL SUCC 25MG EXT REL TAB PO SCH (13:08)
[2024-08-09] MEDS: DORZOLAMIDE/TIMOLOL 22.3/6.8MG/ML 10 ML BTL OPB SCH (13:10)
[2024-08-09] MEDS: CALCIUM CARBONATE 500 MG CHEWABLE TAB PO SCH ×2 (14:28→20:26)
--- NOTE | 2024-08-09 14:41 | Billing Data ---
Date of Service August 09, 2024 Coding Level of Care Code 35030 INT INP/OBS CARE
[2024-08-09 15:48] VITALS: RESP 16
[2024-08-09] MEDS: ANASTROZOLE 1 MG TAB PO SCH (17:05)
[2024-08-09] MEDS: SIMVASTATIN 20 MG TAB PO SCH (20:26)
[2024-08-10 07:57] VITALS: TEMP 97.9
[2024-08-10] MEDS: METOPROLOL SUCC 25MG EXT REL TAB PO STA (09:40)
--- NOTE | 2024-08-10 11:44 | Electrocardiogram Report ---
Test Reason : Blood Pressure : */* mmHG Vent. Rate : 78 BPM Atrial Rate : 78 BPM P-R Int : 188 ms QRS Dur : 126 ms QT Int : 414 ms P-R-T Axes : 32 17 98 degrees QTcB Int : 471 ms Normal sinus rhythm Left bundle branch block Abnormal ECG When compared with ECG of 09-Aug-2024 06:16, (unconfirmed) No significant change was found Confirmed by Valery Loco ([id number]) on 08/10/2024 11:44:04 AM Referred By: REFERRED SELF Confirmed By: Valery Loco
[2024-08-10 11:49] VITALS: BP 130/77; O2SAT 97
--- NOTE | 2024-08-10 12:40 | Discharge Summary ---
"Discharge Summary Date of Service August 10, 2024 Principal Dx & Hospital Course #1 = Principal Diagnosis (1) Paroxysmal atrial fibrillation: (2) LBBB (left bundle branch block): (3) Osteoporosis: (4) GERD (gastroesophageal reflux disease): (5) H/O right mastectomy: (6) Glaucoma: (7) Hypercholesterolemia: (8) Hypertension: Plan Wide-complex tachycardia | Afib Gabriela is an 79yo F with h/o breast cancer s/p mastectomy, HLD, GERD, osteoporosis, glaucoma, LBBB, and recently-diagnosed (Mar 2024) paroxysmal afib/flutter, who presented to the ED for chest heaviness and SOB. Did have an episode of SVT on monitor in the ED which lasted a matter of seconds and reproduced her symptoms. Has been symptom free since then. Brief runs of possible flutter while patient was sleeping and she was asymptomatic for these. Reports 30 day monitor in and started on atenolol after that. This was her first episode since the monitor. Day of discharge symptoms have completely resolved and patient feels at her baseline. Echo unchanged from prior. Keep stress echo scheduled for 08/12. Metoprolol increased to 50mg daily. Continue Xarelto. Will notify Dr. Leija of admission, plan for outpatient cardiology f/u - ? abla tion candidate. Leukocytosis Mild, 12 on admission. Afebrile, pt denies urinary or respiratory symptoms. Consider repeat in 2-4 weeks to assure not chronic. - H/o breast cancer: continue home anastrozole - HLD: continue home simvastatin - Glaucoma: continue home dorzolamide-timolol - GERD: continue home omeprazole Dispo: stable for discharge home with cardiology follow up. Notes For Next Care Provider consider monitoring of elevated white blood cell count, especially in the setting of history of breast cancer Medication Changes From Visit metoprolol increased to 50 mg daily Admission HPI Per Admitting Provider Gabriela is an 79yo F with h/o breast cancer s/p mastectomy, HLD, GERD, osteoporosis, glaucoma, and recently-diagnosed (Mar 2024) paroxysmal afib /flutter, who presented to the ED with chest heaviness and SOB. Sx started several weeks ago w chest pressure & dypnea. Went to urgent care last month and was given augmentin & albuterol for sinusitis. CXR at that time was normal. Sx persisted for a few weeks despite the abx and inhaler, and then appeared to spontaneously resolve. She had an apt w cardiology (Dr. Leija) recently and was asymptomatic at that time. Her symptoms suddenly returned last night, prompting her visit to the ED. Reports that before her afib dx, she had been feeling her heart pounding; shes had no palpitations or similar sx recently. Denies chest pain, says its more like a heaviness in her chest, worse if she lies flat so she typically sleeps w several pillows & on her side. Exercises regularly and denies and Dodson. No syncope or presyncope, PND, lower extremity edema, or claudication. Has been using the inhaler intermittently for this ongoing SOB, and did use it last night. 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 Wallace, You were hospitalized after having periods of shortness of breath - this was happening when your heart rate goes into a rhythm called SVT (Supraventricular tachycardia). You did not have any further episodes of this while you were here, but did have some brief runs of possible atrial flutter. I have attached information on the valsalva manuever, this can be used to break SVT when it does not go away spontaneously. You can try this in the future if you have the repeat sensation at home. The good news is you are already on the appropriate treatment for these conditions. We have increased your metoprolol to 50mg daily to help decrease your heart rate. (you can take 2 of the 25mg tablets until you run out and then burr picker your 50mg tablets). Your Echo looked very similar to the one in . Please keep the stress echo appointment for Sunday and your follow up with Dr. Leija. The follow up is scheduled for 10/08, we will have his office call you to see if you can get in sooner. Activity: You can do normal everyday activities as your body allows. Take rest breaks if you feel tired. Do not overexert. Stop activity if you have pain, shortness of breath or feel dizzy. CONTACT YOUR PRIMARY CARE PROVIDER if you experience any of the following: Shortness of breath or difficulty breathing Fevers or chills Feeling tired with normal activity or experiencing dizziness or fainting Difficulty following your treatment plan, or difficulty taking medications CALL 911 OR GO TO THE EMERGENCY DEPARTMENT if you experience any of the following: Severe abdominal pain or nausea/vomiting Severe chest pain, or chest pain that radiates (moves) to your jaw or arm Sudden, severe shortness of breath or difficulty breathing Thank you for allowing us to participate in your care. BRITNEY Melgar Pending Studies at Discharge: No Stand-Alone Forms: My [facility], Smoking Cessation Medications and DC Order Prescriptions: New metoprolol succinate 50 mg Tablet Extended Release 24 Hr 50 mg PO DAILY Qty: 30 0RF Continued simvastatin 20 mg tablet 20 mg PO QPM Qty: 90 3RF Xarelto 20 mg tablet 20 mg PO DAILY Qty: 90 3RF albuterol sulfate 90 mcg/actuation HFA aerosol inhaler 1 inh inhalation QID PRN (Reason: shortness of breath or wheezing) Qty: 8.5 4RF anastrozole 1 mg tablet 1 mg PO DAILY omeprazole 20 mg tablet,delayed release (DR/EC) 20 mg PO UD Rx Instructions: 20 mg po daily. 08/09-no fill history/otc unable to verify Macular Health Formula 5-1-7.5 mg capsule 4 cap PO DAILY Rx Instructions: 08/09-otc unable to verify loratadine 10 mg Tablet 10 mg PO QAM Rx Instructions: 08/09-otc unable to verify multivitamin [Multiple Vitamins] tablet 1 tab PO QAM Rx Instructions: 08/09-otc unable to verify Tums 1,000 Mg 1 ea PO DAILY Rx Instructions: 08/09-otc unable to verify mometasone 0.1 % cream 1 applic topical UD PRN (Reason: flaring) Rx Instructions: Apply to affected areas on trunk and extremities twice daily x 2 weeks as needed for flaring. last filled 09/07/23 Probiotic (Unknown Strength) 1 cap PO DAILY Rx Instructions: 08/09-otc unable to verify aspirin 81 mg tablet,delayed release (DR/EC) 81 mg PO DAILY Qty: 30 0RF Rx Instructions: 08/09-otc unable to verify dorzolamide-timolol 22.3-6.8 mg/mL drops 1 drp OPB UD Rx Instructions: 1 drp opb daily. last filled 10/09/23 75 day supply Discontinued metoprolol succinate 25 mg tablet extended release 24 hr 25 mg PO DAILY Qty: 90 3RF Discharge Orders: Discharge Order (Routine); Ordered 08/10/24 Ordered By: Talia Magallon/Other Patient Handouts: ED Valsalva Maneuver Admission Data Admit Date/Time: 08/09/24 08:26 Attending Provider: Dusty Syed Admit Provider: Martine Benz Primary Care Provider: Rebecca Cunha V. Other Providers: Dusty Syed Hospital Stay Data Consultations 08/09/24 07:21 ED Decision to Admit Stat Diagnostic Imagining Performed Chest X-Ray 08/09/24 05:40 EXAM: XR chest 1V portable CLINICAL HISTORY: SOB. TECHNIQUE: An X-ray image of the chest is obtained in AP projection. COMPARISON: Compared to the prior study dated 07/14/2024. FINDINGS: Pulmonary Parenchyma: Elevated right hemidiaphragm. Unchanged. Lungs are clear bilaterally. No evidence of consolidation, collapse, or focal opacities. No pulmonary nodules are identified. No evidence of pleural effusion or pleural thickening. Heart and Mediastinum: Heart size and shape are normal. No mediastinal widening or masses. No hilar or mediastinal lymphadenopathy. Small supradiaphragmatic opacity overlying the heart shadow. This is likely hiatal hernia. Unchanged. Bony Thorax: Bony thorax appears intact without fractures or deformities. Soft Tissues: Soft tissues overlying the chest wall are unremarkable. IMPRESSION: 1. Elevated right hemidiaphragm. Unchanged. 2. Unchanged hiatal hernia. 3. No acute cardiopulmonary abnormalities are identified. 4. No time interval significant changes. Electronically signed by Lester Mejias 08-09-2024 06:25 AM Pending Results Patient Have Any Pending Studies at Discharge: No Discharge Instructions Given to Patient (Per Discharging Provider) Ms. Wallace, You were hospitalized after having periods of shortness of breath - this was happening when your heart rate goes into a rhythm called SVT (Supraventricular tachycardia). You did not have any further episodes of this while you were here, but did have some brief runs of possible atrial flutter. I have attached information on the valsalva manuever, this can be used to break SVT when it does not go away spontaneously. You can try this in the future if you have the repeat sensation at home. The good news is you are already on the appropriate treatment for these conditions. We have increased your metoprolol to 50mg daily to help decrease your heart rate. (you can take 2 of the 25mg tablets until you run out and then burr picker your 50mg tablets). Your Echo looked very similar to the one in . Please keep the stress echo appointment for Sunday and your follow up with Dr. Leija. The follow up is scheduled for 10/08, we will have his office call you to see if you can get in sooner. Activity: You can do normal everyday activities as your body allows. Take rest breaks if you feel tired. Do not overexert. Stop activity if you have pain, shortness of breath or feel dizzy. CONTACT YOUR PRIMARY CARE PROVIDER if you experience any of the following: Shortness of breath or difficulty breathing Fevers or chills Feeling tired with normal activity or experiencing dizziness or fainting Difficulty following your treatment plan, or difficulty taking medications CALL 911 OR GO TO THE EMERGENCY DEPARTMENT if you experience any of the following: Severe abdominal pain or nausea/vomiting Severe chest pain, or chest pain that radiates (moves) to your jaw or arm Sudden, severe shortness of breath or difficulty breathing Thank you for allowing us to participate in your care. BRITNEY Melgar Total Time Total Time Spent Total Time Spent (In Minutes): Time spent day of discharge 40 minutes including direct patient care, medication reconciliation, documentation, review of labs and images, and coordination of care. Coding Level of Care Code 14025 INP/OBS DISCH >30 MIN Diagnoses Paroxysmal atrial fibrillation I48.0 LBBB (left bundle branch block) I44.7 Osteoporosis M81.0 GERD (gastroesophageal reflux disease) K21.9 H/O right mastectomy Z90.11 Glaucoma H40.9 Hypercholesterolemia E78.00 Hypertension I10"
[2024-08-10 13:02] VITALS: PULSE 81
--- NOTE | 2024-08-10 13:54 | Electrocardiogram Report ---
Test Reason : Blood Pressure : */* mmHG Vent. Rate : 93 BPM Atrial Rate : 93 BPM P-R Int : 166 ms QRS Dur : 126 ms QT Int : 388 ms P-R-T Axes : 19 39 14 degrees QTcB Int : 482 ms Normal sinus rhythm Left bundle branch block Abnormal ECG When compared with ECG of 09-Aug-2024 04:53, No significant change was found Confirmed by Valery Loco (Fantasma) on 08/10/2024 1:53:44 PM Referred By: REFERRED SELF Confirmed By: Valery Loco
[2024-08-11] MEDS ORDERED: METOPROLOL SUCC 50MG EXT REL TAB PO SCH (09:00)
== END 2024-08-10 13:26 | disposition home or self-care (01) ==
LOC: EDINP 04:38 → ED 04:38 → SUATTDRO 08:26 → 2N 11:24